=== PATIENT | female | born 1985 | race Caucasian/White ===

== ENCOUNTER 2016-09-10 22:31 | Emergency (ER) | payer OTHER ==
[~2016-09-10] VITALS: Ht 162.6 cm; Wt 97.8 kg
[~2016-09-10 22:31] MED LIST: ALPR0.5T PO; CARB200T PO; CITA40TA12 PO; WLLSR150 PO
[2016-09-10 22:37] VITALS: BP 158/98; PULSE 120; TEMP 36.5; O2SAT 97; Ht 162.6 cm; Wt 97.8 kg
--- NOTE | 2016-09-10 22:59 | EMERGENCY ROOM VISIT NOTE ---
History Report prepared by Tana: Josefa Glover Under the Supervision of: Dr. Lewis Berg M.D. First contact with patient: 22:53 Chief Complaint: BACK PAIN Stated Complaint: REALLY BAD PAIN, SCIATICA AND BIG TOE History of Present Illness The patient is a 31 year old female who presents to the Emergency Room via family with complaints of worsening back pain with onset 1.5 weeks ago. She rates her pain as a 9/10. The patient states that she has a history of sciatica. The patient has been seen at her PCP and has tried various treatments for her sciatica pain. For her pain, the patient has tried taking ibuprofen at home, without relief. The patient's left toe is swollen and painful. She denies falling, trauma, difficulty urinating. Additionally, the patient states that taking prednisone or muscle relaxers do not work. Source of History: patient Onset: 1.5 weeks ago Position: back Symptom Intensity: 9/10 Quality: other (back pain) Timing: worsening Note: The patient's left toe is swollen and painful. She denies difficulty urinating. Review of Systems See HPI for pertinent positives & negatives. A total of 10 systems reviewed and were otherwise negative. Past Medical & Surgical Medical Problems: (1) Bipolar disorder (2) Complete (3) Sciatica Surgical Problems: (1) History of cholecystectomy Family History No significant family history Social History Smoking Status: Current Every Day Smoker Alcohol Use: none Drug Use: none Marital Status: Housing Status: lives with family Occupation Status: disabled Current/Historical Medications Scheduled Alprazolam (Xanax), 0.5 MG PO TID Bupropion HCl (Bupropion HCl Sr), 150 MG PO DAILY Carbamazepine (Tegretol), 100 MG PO BID Citalopram Hydrobromide (Celexa), 40 MG PO DAILY Scheduled PRN Oxycodone Ir (Roxicodone Ir), 1-2 TAB PO Q4H PRN for Pain Allergies Coded Allergies: Penicillins (Verified Allergy, Intermediate, rash, 01/21/16) Physical Exam Vital Signs Date Time Temp Pulse Resp B/P Pulse Ox O2 Delivery O2 Flow Rate FiO2 09/10/16 22:37 36.5 120 18 158/98 97 Room Air Physical Exam GENERAL: Patient is in no acute distress. HEENT: No acute trauma, normocephalic atraumatic, mucous membranes moist, no nasal congestion, no scleral icterus. NECK: No stridor, no adenopathy, no meningismus, trachea is midline. LUNGS: Clear to auscultation bilaterally, no wheeze, no rhonchi, breath sounds equal. HEART: Without murmurs gallops or rubs, regular rate and rhythm. ABDOMEN: Soft, nontender, bowel sounds positive, no hernias, no peritonitis. BACK: Tender to palpate the left lumbar muscles, pain worsens with movement. EXTREMITIES: No cyanosis or edema, full range of motion of all the joints without pain or difficulty. Left toe skin is split open medially--no infection or cellulitis--the area is tender to touch. NEUROLOGIC: Oriented x 3, no acute motor or sensory deficits, no focal weakness. 2/4 patellar and Achilles' reflexes bilaterally. SKIN: No rash, no jaundice, no diaphoresis. Medical Decision & Procedures Medications Administered Medications (Trade) Dose Ordered Sig/Katherine Route Start Time Stop Time Status Last Admin Dose Admin Ketorolac Tromethamine (Toradol Inj) 60 mg NOW STAT IM 09/10/16 23:01 09/10/16 23:04 DC 09/10/16 23:21 60 MG Promethazine HCl (Phenergan Tab) 25 mg NOW ONCE PO 09/10/16 23:15 09/10/16 23:16 DC 09/10/16 23:21 25 MG Oxycodone HCl (Roxicodone Immediate Rel 5MG Home Pack) 1 homepack UD ONCE PO 09/10/16 23:15 09/10/16 23:16 DC 09/10/16 23:22 1 HOMEPACK Morphine Sulfate (MoRPHine SULFATE INJ) 2 mg STK-MED ONCE .ROUTE 09/10/16 23:19 09/10/16 23:20 DC 09/10/16 23:20 2 MG Morphine Sulfate (MoRPHine SULFATE INJ) 4 mg STK-MED ONCE .ROUTE 09/10/16 23:19 09/10/16 23:20 DC 09/10/16 23:21 4 MG ED Course 225: The patient was evaluated in room A3. A complete history and physical exam was performed. 230: Toradol 60 mg IM, Morphine Sulfate 6 mg IM 2315: Oxycodone HCl 1 homepack PO, Phenergan Tab 25 mg PO 2338: Reevaluated the patient. Discussed results and discharge instructions: She verbalized understanding and agreement. The patient is ready for discharge. Medical Decision The patient is a 31 year old female who presents to the ED with complaints of back pain. Differential diagnoses considered include: sciatica, muscle spasm, nerve impingement, disc disease, infection. The patient presents with left back pain and some sciatica pain, this has been an ongoing issue for her. She has seen chiropractors, physical therapy, she has been to pain management. The patient is currently using nonsteroidals at home for pain control. She denies any recent trauma or injury that would've aggravated things, there has been no fever, she does state that she has a split area of skin on her left toe and this has been causing more pain in the already painful left leg. The patient was given IM morphine, IM Toradol and oral Phenergan. I did not feel the need for imaging or laboratory testing. There has been no trauma, she has not been febrile or ill in other ways. This sciatica issue has been ongoing for her. The patient is being discharged with a few oxycodone. She will continue her other meds, I advised massage, heat and gentle stretching. She should see her chiropractor again. She can return if worsening or if she develops a fever. [place] Drug Monitoring Program Search Results: patient reviewed within database, no issues identified Impression Primary Impression: Lower back pain Additional Impression: Sciatica Scribe Attestation The scribe's documentation has been prepared under my direction and personally reviewed by me in its entirety. I confirm that the note above accurately reflects all work, treatment, procedures, and medical decision making performed by me. Departure Information Dispostion Home / Self-Care Prescriptions Oxycodone Ir (Roxicodone Ir) 5 Mg Tab 1-2 TAB PO Q4H Y for Pain, #12 TAB Prov: Lewis Berg M.D. 09/10/16 Referrals Rodrigo Hunt M.D. (PCP) Forms HOME CARE DOCUMENTATION FORM, IMPORTANT VISIT INFORMATION Patient Instructions My [facility] Additional Instructions oxy ir 1-2 tab every 4 hours for pain massage and heat gentle stretching see your chiropractor and jayjay dutta Problem Qualifiers
[2016-09-10] MEDS ORDERED: MoRPHine SULFATE 10 MG/ML CARP/VIAL IM STA (23:01)
[2016-09-10] MEDS ORDERED: KETOROLAC TROMETHAMINE 60 MG/2 ML VIAL IM STA (23:01)
[2016-09-10] MEDS ORDERED: PROMETHAZINE HCL 25 MG TAB PO ONE (23:15)
[2016-09-10] MEDS ORDERED: OXYCODONE IR HOME PACK PO ONE (23:15)
[2016-09-10] MEDS ORDERED: MoRPHine SULFATE 4 MG/ML 1 ML CARP\\VIAL ONE (23:19)
[2016-09-10] MEDS ORDERED: MoRPHine SULFATE 2 MG/ML CARP ONE (23:19)
[2016-09-10] MEDS ORDERED: OXYC1TAB3 PO (23:39)
== END 2016-09-10 23:50 | disposition home or self-care (01) ==
LOC: C.EDB 22:32 → C.EDA 23:50
DX: M54.5 Low back pain (principal); M53.3 Sacrococcygeal disorders, not elsewhere classified; F31.9 Bipolar disorder, unspecified; F17.200 Nicotine dependence, unspecified, uncomplicated; Z90.49 Acquired absence of other specified parts of digestive tract; Z79.899 Other long term (current) drug therapy; Z88.0 Allergy status to penicillin

== ENCOUNTER 2016-10-30 22:22 | Emergency (ER) | payer OTHER ==
[~2016-10-30] VITALS: Ht 162.6 cm; Wt 97.9 kg
[~2016-10-30 22:22] MED LIST changes: +OXYC1TAB3 PO
[2016-10-30 22:31] VITALS: TEMP 36.9; Ht 162.6 cm; Wt 97.9 kg
[2016-10-30] MEDS ORDERED: ALPRAZOLAM 0.5 MG TAB PO STA (22:32)
[2016-10-30 22:51] LABS: MEAN CELL VOLUME 92.4 fL (80-100); MEAN CORPUSCULAR HEMOGLOBIN 31.3 pg (25-34); MEAN CORPUSCULAR HGB CONC 33.8 g/dl (32-36); MEAN PLATELET VOLUME 9.1 fL (7.4-10.4); PLATELET COUNT 371 K/uL (130-400); RED BLOOD COUNT 4.22 M/uL (4.2-5.4); WHITE BLOOD COUNT 14.73 K/uL (4.8-10.8)
--- NOTE | 2016-10-30 22:51 | EMERGENCY ROOM VISIT NOTE ---
History Report prepared by Tana: Remy Salazar Under the Supervision of: Dr. Ventura Ashton M.D. First contact with patient: 22:27 Chief Complaint: ANXIETY Stated Complaint: ANXIETY History of Present Illness The patient is a 31 year old female who presents to the Emergency Room with complaints of an anxiety attack that started approximately 2 hours [employer]. She was brought to the ED via EMS. The patient describes the attack as feeling like a "tingly" pain throughout her chest and back. She also states she feels like she is going to hyperventilate. She admits to a history of anxiety, for which she takes Xanax. She took one pill this morning and another one earlier this evening. She admits to increased fighting with her , which may have exacerbated her symptoms. The patient also complains of shortness of breath. She denies any abdominal pain or personal cardiac history but does admit to a family history of cardiac problems. 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 Please see Additional Medical History Sheet. Past Medical & Surgical Medical Problems: (1) Bipolar disorder (2) Complete (3) Sciatica Surgical Problems: (1) History of cholecystectomy Family History No significant family history Social History Smoking Status: Current Every Day Smoker Alcohol Use: none Drug Use: none Marital Status: Housing Status: lives with family Occupation Status: disabled Current/Historical Medications Scheduled Alprazolam (Xanax), 0.5 MG PO TID Risperidone (Risperdal), 1 MG PO QPM Sertraline (Zoloft), 200 MG PO HS Scheduled PRN Hydrocodone/Acetaminophen 5MG/325MG ([place] 5MG/325MG), 1 TABLET PO Q6 PRN for Severe Pain Ibuprofen (Ibuprofen), 800 MG PO Q8 PRN for Pain Allergies Coded Allergies: Penicillins (Verified Allergy, Intermediate, rash, 01/21/16) Physical Exam Vital Signs Date Time Temp Pulse Resp B/P Pulse Ox O2 Delivery O2 Flow Rate FiO2 10/31/16 00:05 99 18 128/93 95 Room Air 10/30/16 22:42 115 10/30/16 22:31 36.9 108 20 130/110 98 Room Air Physical Exam GENERAL: Patient awake, alert, oriented x 3. Patient follows commands. Patient does not appear toxic. Patient is adequately hydrated and well- nourished. SKIN: No erythema, pallor, cyanosis or rash HEENT: Normal head, pupils equal, reactive to light and accommodation. Oral cavity and posterior pharynx appear normal. LUNGS: Clear to auscultation. No wheezes, no rales, no rhonchi. CHEST: Slight tenderness over left sternal border. HEART: No murmurs. No gallops. No rubs ABDOMEN: Obese. No masses, no rebound, no hepatomegaly or splenomegaly. EXTREMITIES: No signs of trauma. No pedal or pretibial edema. No calf or thigh tenderness. NEUROLOGIC: Cranial nerves II-XII within normal limits. No gross motor sensory function deficits. Medical Decision & Procedures ER Provider Diagnostic Interpretation: This X-Ray was reviewed and interpreted by myself as we do not have a radiologist on staff overnight. CHEST X-RAY Chest X-Ray shows no acute infiltrates or pneumothorax. Laboratory Results 10/30/16 22:40 10/30/16 22:40 Test 10/30/16 22:40 Red Blood Count 4.22 M/uL (4.2-5.4) Mean Corpuscular Volume 92.4 fL (80-100) Mean Corpuscular Hemoglobin 31.3 pg (25-34) Mean Corpuscular Hemoglobin Concent 33.8 g/dl (32-36) RDW Standard Deviation 48.3 fL (36.4-46.3) RDW Coefficient of Variation 14.3 % (11.5-14.5) Mean Platelet Volume 9.1 fL (7.4-10.4) Anion Gap 11.0 mmol/L (3-11) Est Creatinine Clear Calc Drug Dose 128.1 ml/min Estimated GFR () 128.1 Estimated GFR (Non- 110.5 BUN/Creatinine Ratio 15.6 (10-20) Calcium Level 8.6 mg/dl (8.5-10.1) Troponin I < 0.015 ng/ml (0-0.045) Laboratory results as stated above per my review. Medications Administered Medications (Trade) Dose Ordered Sig/Katherine Route Start Time Stop Time Status Last Admin Dose Admin Alprazolam (Xanax Tab) 0.5 mg NOW STAT PO 10/30/16 22:32 10/30/16 22:34 DC 10/30/16 22:41 0.5 MG ECG Indication: chest pain Rate (beats per minute): 106 Rhythm: sinus tachycardia Findings: PAC, no acute ischemic change, other (normal axis) ED Course 2228: Past medical records reviewed. The patient was evaluated in room A12. A complete history and physical examination was performed. 223: Xanax 0.5 mg PO. 0039: I reevaluated the patient. She is still in some discomfort but is feeling better. I discussed her results and discharge instructions and she verbalized complete understanding and agreement. Medical Decision Nurses notes reviewed. Medical history sheet reviewed. Differential diagnosis includes but is not limited to: anxiety, hyperventilation syndrome, cardiac ischemia, aortic dissection, pulmonary embolism, pneumonia, pneumothorax, musculoskeletal, infections, pericarditis, myocarditis, esophageal rupture, gastrointestinal, as well as others were entertained. Multiple labs, EKG and imaging were obtained. Please see above. The patient's white count is slightly elevated although I do not believe this represents a pulmonary infection. Troponin is not elevated. EKG does not reveal an acute change. Patient does have slight chest wall pain. She also significant anxiety. The patient was reassured. I believe that she can safely return home. She does have Xanax to take at home as needed. She is to follow-up with her family physician. Impression Primary Impression: Acute anxiety Additional Impression: Chest wall pain Scribe Attestation The scribe's documentation has been prepared under my direction and personally reviewed by me in its entirety. I confirm that the note above accurately reflects all work, treatment, procedures, and medical decision making performed by me. Departure Information Dispostion Home / Self-Care Referrals Rodrigo Hunt M.D. (PCP) Patient Instructions ED Stress React, My [facility] Additional Instructions Apply warm heat intermittently to your chest over the next 2-3 days. Take Xanax as needed for anxiety. Follow-up with your family physician within the next 7 days. Return here if your symptoms are getting worse. Problem Qualifiers
[2016-10-30 23:08] LABS: BLOOD UREA NITROGEN 11 mg/dl (7-18); BUN/CREATININE RATIO 15.6 (10-20); CALCIUM 8.6 mg/dl (8.5-10.1); CARBON DIOXIDE 27 mmol/L (21-32); CHLORIDE 109 mmol/L (98-107); CREATININE 0.73 mg/dl (0.60-1.20); GLUCOSE 103 mg/dl (70-99); POTASSIUM 3.4 mmol/L (3.5-5.1); SODIUM 147 mmol/L (136-145)
[2016-10-31 00:05] VITALS: BP 128/93; PULSE 99; O2SAT 95
[2016-10-31] MEDS ORDERED: MTR800 PO (00:23)
[2016-10-31] MEDS ORDERED: SERT-234 PO (00:23)
[2016-10-31] MEDS ORDERED: RISP1TAB68 PO (00:23)
[2016-10-31] MEDS ORDERED: HYDR-5688 PO (00:24)
--- NOTE | 2016-10-31 07:27 | DIAGNOSTIC IMAGING REPORT ---
CHEST 2 VIEWS ROUTINE HISTORY: Atypical chest pain COMPARISON: Chest 10/03/2015. FINDINGS: Small linear density at the left midlung zone favor scarring or atelectasis. The lungs are otherwise clear. The heart is normal in size. No pleural effusions. No pneumothorax. IMPRESSION: Left midlung zone scarring or atelectasis. Otherwise, no acute process within the chest. Electronically signed by: Fili Naqvi M.D. 10/31/2016 7:25 AM Dictated Date/Time: 10/31/2016 7:24 AM
== END 2016-10-31 00:58 | disposition home or self-care (01) ==
LOC: EDBD 22:22 → C.EDA 22:24
DX: F41.9 Anxiety disorder, unspecified (principal); R07.89 Other chest pain; R00.0 Tachycardia, unspecified; R31.9 Hematuria, unspecified; F17.200 Nicotine dependence, unspecified, uncomplicated; Z90.49 Acquired absence of other specified parts of digestive tract; Z79.899 Other long term (current) drug therapy; Z88.0 Allergy status to penicillin

== ENCOUNTER 2016-12-12 19:55 | Emergency (ER) | payer OTHER ==
[~2016-12-12] VITALS: Ht 162.6 cm; Wt 97.2 kg
[~2016-12-12 19:55] MED LIST changes: -CARB200T PO; -CITA40TA12 PO; +HYDR-5688 PO; +MTR800 PO; -OXYC1TAB3 PO; +RISP1TAB68 PO; +SERT-234 PO; -WLLSR150 PO
[2016-12-12 19:58] VITALS: Ht 162.6 cm; Wt 97.2 kg
[2016-12-12] MEDS ORDERED: TRAZ50TA35 PO (20:17)
[2016-12-12] MEDS ORDERED: SODIUM CHLORIDE 0.9% 1000ML 1,000 ML IV STA ×2 (20:46)
[2016-12-12 20:54] LABS: BASO % 0.3 %; BASO ABS # 0.05 K/uL (0-0.2); COMPLETE YES; EOS % 0.1 %; IG% 0.3 %; LYMPH % 11.3 %; LYMPH ABS # 2.05 K/uL (1.2-3.4); MEAN CELL VOLUME 90.9 fL (80-100); MEAN CORPUSCULAR HEMOGLOBIN 31.5 pg (25-34); MEAN CORPUSCULAR HGB CONC 34.6 g/dl (32-36); MEAN PLATELET VOLUME 9.2 fL (7.4-10.4); MONO % 3.6 %; NEUT % 84.4 %; PLATELET COUNT 284 K/uL (130-400); RED BLOOD COUNT 4.29 M/uL (4.2-5.4); WHITE BLOOD COUNT 18.16 K/uL (4.8-10.8)
[2016-12-12 21:07] LABS: MANUAL MICROSCOPIC REQUIRED? NO; REVIEW REQ? NO; URINE APPEARANCE CLEAR (CLEAR); URINE BILIRUBIN NEG (NEG); URINE COLOR YELLOW; URINE EPITHELIAL CELL AUTO >30 /lpf (0-5); URINE NITRITE NEG (NEG); URINE SPECIFIC GRAVITY 1.019 (1.000-1.030); UROBILINOGEN NEG (NEG); ZZUR CULT IF INDIC CLEAN CATCH NO
[2016-12-12 21:09] LABS: SULFASALICYLIC ACID POS (NEG)
[2016-12-12 21:11] LABS: ALT/SGPT 33 U/L (12-78); BLOOD UREA NITROGEN 9 mg/dl (7-18); BUN/CREATININE RATIO 9.6 (10-20); CALCIUM 9.1 mg/dl (8.5-10.1); CARBON DIOXIDE 26 mmol/L (21-32); CHLORIDE 99 mmol/L (98-107); CREATININE 0.89 mg/dl (0.60-1.20); GLUCOSE 120 mg/dl (70-99); MAGNESIUM 1.6 mg/dl (1.8-2.4); POTASSIUM 3.1 mmol/L (3.5-5.1); SODIUM 135 mmol/L (136-145)
--- NOTE | 2016-12-12 21:13 | DIAGNOSTIC IMAGING REPORT ---
SINGLE VIEW CHEST CLINICAL HISTORY: Generalized weakness. FINDINGS: An AP, portable, semierect chest radiograph is compared to study dated 10/30/2016 and correlated with chest CT dated . The examination is degraded by portable technique, large body habitus, and patient rotation. The cardiomediastinal silhouette is unremarkable. There are bibasilar airspace opacities and mild elevation of the right hemidiaphragm. No large pleural effusion or pneumothorax is seen. The bony thorax is grossly intact. IMPRESSION: Bibasilar airspace opacities likely represent atelectasis. Clinical correlation will be required. Electronically signed by: Lewis Westfall M.D. 12/12/2016 9:12 PM Dictated Date/Time: 12/12/2016 9:11 PM
[2016-12-12] MEDS ORDERED: KETOROLAC TROMETHAMINE 30 MG/ML VIAL IV STA (21:18)
[2016-12-12] MEDS ORDERED: ACETAMINOPHEN 500 MG TAB PO STA (21:18)
[2016-12-12 21:20] LABS: ALKALINE PHOSPHATASE 113 U/L (45-117); AST/SGOT 15 U/L (15-37)
[2016-12-12 22:09] LABS: LYME DISEASE AB IGG NEG (NEG); LYME DISEASE AB IGM NEG (NEG)
--- NOTE | 2016-12-12 22:30 | DIAGNOSTIC IMAGING REPORT ---
CT SCAN OF THE BRAIN WITHOUT IV CONTRAST CLINICAL HISTORY: Headache. COMPARISON STUDY: No priors. TECHNIQUE: Unenhanced axial CT scan of the brain is performed from the vertex to the skull base. Automated dose control exposure was utilized. CT DOSE: 537.48 mGy.cm FINDINGS: Brain parenchyma: The brain parenchyma is normal in appearance. There is no hemorrhage, mass effect, or evidence of acute territorial ischemia by CT criteria. Oscar-white matter is preserved. No extra-axial fluid collection is seen. Ventricles, sulci, cisterns: Normal in configuration. Intracranial vasculature: The visualized intracranial vasculature at the skull base is normal in appearance. Calvarium: Unremarkable. Sinuses and mastoids: Trace fluid is seen in the sphenoid sinuses. The remaining visualized paranasal sinuses are clear. The mastoid air cells are well pneumatized. Orbits: The bony orbits are grossly intact. IMPRESSION: No acute intracranial abnormality. Electronically signed by: Lewis Westfall M.D. 12/12/2016 10:29 PM Dictated Date/Time: 12/12/2016 10:27 PM
[2016-12-12 22:54] VITALS: O2SAT 97
[2016-12-12] MEDS ORDERED: MoRPHine SULFATE 4 MG/ML 1 ML CARP\\VIAL IV STA (23:46)
[2016-12-12] MEDS ORDERED: ONDANSETRON INJ 2 MG/ML 2 ML VIAL IV STA (23:46)
[2016-12-13 02:01] LABS: CSF TOTAL PROTEIN 26.7 mg/dl (15.0-45.0)
[2016-12-13 02:16] LABS: CSF CHEMISTRY TUBE # 2
[2016-12-13 02:19] LABS: CSF APPEARANCE CLEAR; CSF COLOR COLORLESS; CSF XANTHOCHROMIC NO XANTHOCHROMIA
[2016-12-13 02:29] VITALS: PULSE 98; O2SAT 97
[2016-12-13] MEDS ORDERED: DOXYCYCLINE HYCLATE 100 MG CAP PO ONE (02:30)
[2016-12-13] MEDS ORDERED: POTASSIUM CHLORIDE 10 MEQ TABCR PO STA (02:30)
[2016-12-13] MEDS ORDERED: DXY100 PO (02:32)
[2016-12-13 02:47] VITALS: BP 124/75; TEMP 36.9
--- NOTE | 2016-12-13 03:58 | EMERGENCY ROOM VISIT NOTE ---
History Report prepared by Tana: Aby Junior Under the Supervision of: Dr. Brooks Mccall M.D. First contact with patient: 20:46 Chief Complaint: ILLNESS Stated Complaint: POUNDING HEAD,BAD ACHING EVERYWHERE,WEAK History of Present Illness The patient is a 31 year old female who presents to the Emergency Room with complaints of an episode of an illness starting eight hours ago. The patient states that she has a headache, fever, cough, sorethroat, some nasal congestion , and weakness. The patient notes that she took Ibuprofen eight hours ago with no relief. She states that her headache feels like a throbbing sensation. The patient denies any tick or bug bites. Pt denies LOC, chills, diaphoresis, visual changes, neck pain, chest pain, breathing difficulties, nausea, vomiting , abdominal pain, new back pain, melena, hematochezia, urinary symptoms, numbness, lymphadenopathy, rash, or other complaints. Source of History: patient Onset: eight hours ago Position: other (global) Quality: other (global) Timing: other (episode) Associated Symptoms: + fevers, + headache, + sorethroat, + cough, + weakness Note: The patient complains of nasal congestion. The patient denies any tick or bug bites. Review of Systems See HPI for pertinent positives and negatives. A total of ten systems were reviewed and were otherwise negative. Past Medical & Surgical Medical Problems: (1) Bipolar disorder (2) Complete (3) Sciatica Surgical Problems: (1) History of cholecystectomy Family History No significant family history Social History Smoking Status: Current Every Day Smoker Alcohol Use: none Drug Use: none Marital Status: Housing Status: lives with family Occupation Status: disabled Current/Historical Medications Scheduled Alprazolam (Xanax), 0.5 MG PO TID Doxycycline Hyclate (Doxycycline Hyclate), 100 MG PO BID Trazodone Hcl (Trazodone), 50 MG PO HS Scheduled PRN Hydrocodone/Acetaminophen 5MG/325MG ([place] 5MG/325MG), 1 TABLET PO Q6 PRN for Severe Pain Ibuprofen (Ibuprofen), 800 MG PO Q8 PRN for Pain Allergies Coded Allergies: Penicillins (Verified Allergy, Intermediate, rash, 12/12/16) Physical Exam Vital Signs Date Time Temp Pulse Resp B/P (MAP) Pulse Ox O2 Delivery O2 Flow Rate FiO2 12/13/16 02:47 36.9 18 124/75 12/13/16 02:29 98 97 Room Air 12/13/16 01:40 98 20 119/83 94 Room Air 12/12/16 23:02 121 12/12/16 22:54 97 Room Air 12/12/16 22:54 126 16 137/89 97 Room Air 12/12/16 19:58 38.4 138 22 146/94 96 Room Air Physical Exam GENERAL: Awake, alert, mildly ill appearing, no distress HEAD: Normocephalic, atraumatic. No edema. EYES: Normal conjunctiva. Sclera non-icteric. EARS: Right TM normal. Left TM normal. NOSE: Mild congestion. OROPHARYNX: Lips, tongue, and mucosa unremarkable. No erythema or exudate. NECK: Supple. No nuchal rigidity. FROM. No adenopathy. Negative jolt accentuation test. RESPIRATORY: CTA bilaterally. No wheezes rales or rhonchi. CARDIAC: Borderline tachycardic rate, normal rhythm. ABDOMEN: Soft, non distended. No tenderness to palpation. NEURO: Normal sensorium. SKIN: No rash or jaundice noted Medical Decision & Procedures ER Provider Diagnostic Interpretation: Radiology results as stated below per my review and radiologist interpretation: SINGLE VIEW CHEST CLINICAL HISTORY: Generalized weakness. FINDINGS: An AP, portable, semierect chest radiograph is compared to study dated 10/30/2016 and correlated with chest CT dated . The examination is degraded by portable technique, large body habitus, and patient rotation. The cardiomediastinal silhouette is unremarkable. There are bibasilar airspace opacities and mild elevation of the right hemidiaphragm. No large pleural effusion or pneumothorax is seen. The bony thorax is grossly intact. IMPRESSION: Bibasilar airspace opacities likely represent atelectasis. Clinical correlation will be required. Electronically signed by: Lewis Westfall M.D. 12/12/2016 9:12 PM Dictated Date/Time: 12/12/2016 9:[address] SCAN OF THE BRAIN WITHOUT IV CONTRAST CLINICAL HISTORY: Headache. COMPARISON STUDY: No priors. TECHNIQUE: Unenhanced axial CT scan of the brain is performed from the vertex to the skull base. Automated dose control exposure was utilized. CT DOSE: 537.48 mGy.cm FINDINGS: Brain parenchyma: The brain parenchyma is normal in appearance. There is no hemorrhage, mass effect, or evidence of acute territorial ischemia by CT criteria. Oscar-white matter is preserved. No extra-axial fluid collection is seen. Ventricles, sulci, cisterns: Normal in configuration. Intracranial vasculature: The visualized intracranial vasculature at the skull base is normal in appearance. Calvarium: Unremarkable. Sinuses and mastoids: Trace fluid is seen in the sphenoid sinuses. The remaining visualized paranasal sinuses are clear. The mastoid air cells are well pneumatized. Orbits: The bony orbits are grossly intact. IMPRESSION: No acute intracranial abnormality. Electronically signed by: Lewis Westfall M.D. 12/12/2016 10:29 PM Dictated Date/Time: 12/12/2016 10:27 PM Laboratory Results 12/12/16 20:40 Red Blood Count 4.29, Mean Corpuscular Volume 90.9, Mean Corpuscular Hemoglobin 31.5, Mean Corpuscular Hemoglobin Concent 34.6, Mean Platelet Volume 9.2, Neutrophils (%) (Auto) 84.4, Lymphocytes (%) (Auto) 11.3, Monocytes (%) (Auto) 3.6, Eosinophils (%) (Auto) 0.1, Basophils (%) (Auto) 0.3, Neutrophils # (Auto) 15.34, Lymphocytes # (Auto) 2.05, Monocytes # (Auto) 0.66, Eosinophils # (Auto) 0.01, Basophils # (Auto) 0.05 12/12/16 20:40 Test 12/12/16 00:00 12/12/16 20:40 12/12/16 21:14 12/13/16 01:00 Urine Color YELLOW Urine Appearance CLEAR (CLEAR) Urine pH 8.0 (4.5-7.5) Urine Specific [place] 1.019 (1.000-1.030) Urine Protein TRACE (NEG) Urine Glucose (UA) NEG (NEG) Urine Ketones NEG (NEG) Urine Occult Blood NEG (NEG) Urine Nitrite NEG (NEG) Urine Bilirubin NEG (NEG) Urine Urobilinogen NEG (NEG) Urine Leukocyte Esterase NEG (NEG) Urine WBC (Auto) 1-5 /hpf (0-5) Urine RBC (Auto) 0-4 /hpf (0-4) Urine Hyaline Casts (Auto) 0 /lpf (0-5) Urine Epithelial Cells (Auto) >30 /lpf (0-5) Urine Bacteria (Auto) NEG (NEG) Urine Test NEG (NEG) White Blood Count 18.16 K/uL (4.8-10.8) Red Blood Count 4.29 M/uL (4.2-5.4) Hemoglobin 13.5 g/dL (12.0-16.0) Hematocrit 39.0 % (37-47) Mean Corpuscular Volume 90.9 fL (80-100) Mean Corpuscular Hemoglobin 31.5 pg (25-34) Mean Corpuscular Hemoglobin Concent 34.6 g/dl (32-36) Platelet Count 284 K/uL (130-400) Mean Platelet Volume 9.2 fL (7.4-10.4) Neutrophils (%) (Auto) 84.4 % Lymphocytes (%) (Auto) 11.3 % Monocytes (%) (Auto) 3.6 % Eosinophils (%) (Auto) 0.1 % Basophils (%) (Auto) 0.3 % Neutrophils # (Auto) 15.34 K/uL (1.4-6.5) Lymphocytes # (Auto) 2.05 K/uL (1.2-3.4) Monocytes # (Auto) 0.66 K/uL (0.11-0.59) Eosinophils # (Auto) 0.01 K/uL (0-0.5) Basophils # (Auto) 0.05 K/uL (0-0.2) RDW Standard Deviation 46.3 fL (36.4-46.3) RDW Coefficient of Variation 14.1 % (11.5-14.5) Immature Granulocyte % (Auto) 0.3 % Immature Granulocyte # (Auto) 0.05 K/uL (0.00-0.02) Anion Gap 10.0 mmol/L (3-11) Est Creatinine Clear Calc Drug Dose 104.6 ml/min Estimated GFR () 100.8 Estimated GFR (Non- 87.0 BUN/Creatinine Ratio 9.6 (10-20) Calcium Level 9.1 mg/dl (8.5-10.1) Magnesium Level 1.6 mg/dl (1.8-2.4) Total Bilirubin 0.7 mg/dl (0.2-1) Direct Bilirubin 0.1 mg/dl (0-0.2) Aspartate Amino Transf (AST/SGOT) 15 U/L (15-37) Alanine Aminotransferase (ALT/SGPT) 33 U/L (12-78) Alkaline Phosphatase 113 U/L (45-117) Total Creatine Kinase 56 U/L (26-192) Creatine Kinase MB < 0.5 ng/ml (0.5-3.6) Creatine Kinase MB Ratio (0-3.0) Troponin I < 0.015 ng/ml (0-0.045) Total Protein 8.3 gm/dl (6.4-8.2) Albumin 3.9 gm/dl (3.4-5.0) Lipase 127 U/L (73-393) Thyroid Stimulating Hormone (TSH) 0.380 uIu/ml (0.300-4.500) Lyme Disease IgG Antibody NEG (NEG) Lyme Disease IgM Antibody NEG (NEG) Bedside Lactic Acid Venous 1.56 mmol/L (0.90-1.70) CSF Color COLORLESS CSF Appearance CLEAR CSF WBC 0 /uL (0-5) CSF RBC 540 /uL (0) CSF Xanthrochromic NO XANTHOCHROMIA CSF Cell Count Tube # 1 CSF Chemistry Tube # 2 CSF Glucose 84 mg/dl (40-70) CSF Total Protein 26.7 mg/dl (15.0-45.0) Laboratory results reviewed by me Medications Administered Medications (Trade) Dose Ordered Sig/Katherine Route Start Time Stop Time Status Last Admin Dose Admin Sodium Chloride 1,000 ml @ 999 mls/hr Q1H1M STAT IV 12/12/16 20:46 12/12/16 21:46 DC 12/12/16 21:07 999 MLS/HR Sodium Chloride 1,000 ml @ 125 mls/hr Q8H STAT IV 12/12/16 20:46 12/13/16 04:45 12/12/16 20:46 125 MLS/HR Acetaminophen (Tylenol Tab) 1,000 mg NOW STAT PO 12/12/16 21:18 12/12/16 21:20 DC 12/12/16 21:36 1,000 MG Ketorolac Tromethamine (Toradol Inj) 30 mg NOW STAT IV 12/12/16 21:18 12/12/16 21:20 DC 12/12/16 21:36 30 MG Morphine Sulfate (MoRPHine SULFATE INJ) 4 mg NOW STAT IV 12/12/16 23:46 12/12/16 23:47 DC 12/13/16 00:15 4 MG Ondansetron HCl (Zofran Inj) 4 mg NOW STAT IV 12/12/16 23:46 12/12/16 23:47 DC 12/13/16 00:15 4 MG Doxycycline Hyclate (Vibramycin Cap) 100 mg ONE ONCE PO 12/13/16 02:30 12/13/16 02:31 DC 12/13/16 02:39 100 MG Potassium Chloride (Klor-Con M10) 20 meq NOW STAT PO 12/13/16 02:30 12/13/16 02:32 DC 12/13/16 02:39 20 MEQ Procedure Lumbar Puncture Indication: Fever and headache. Verbal consent was obtained after the risks and benefits were explained, including but not limited to headache, bleeding/clotting, scarring, infection, pain, and bone/joint/nerve damage. At this time, the risks of the procedure are less than the risks of NOT performing the procedure. A time out was taken and the correct patient and site identified. The patient was placed in the left lateral decubitus position and the back was prepped with betadine and draped in the standard fashion. The L3 intervertebral space was identified, anesthetized locally with 1% lidocaine without epinephrine, and the spinal needle was inserted through the skin with the bevel parallel to the dural fibers. The needle was carefully advanced multiple times however spinal fluid cannot be obtained. The patient will need fluoroscopic guidance. A bandaid was placed and the patient was placed in the supine position. The patient tolerated the procedure well and there were no complications. ECG Indication: weakness Rate (beats per minute): 128 Rhythm: sinus tachycardia Findings: no acute ischemic change, no ectopy Comparison ECG Date: 10/30/2016 Change: no significant change ED Course 2045: Ordered NSS 1000 ml @ 999 mls/hr IV, NSS 1000 ml @ 999 mls/hr IV. 2112: The patient was evaluated in room C2B. A complete history and physical exam was performed. 2117: Ordered Toradol Inj 30 mg IV, Tylenol Tab 1000 mg PO. 2237: I reevaluated the patient and she is feeling okay. Her fever has resolved. The patient is going to have a lumbar puncture done. 2346: Ordered Zofran Inj 4 mg IV, Morphine Sulfate 4 mg IV. 2352: Attempted to complete lumbar puncture, but difficult due to patient's body habitus. Notified radiology to perform lumbar puncture. 0225: I reevaluated the patient. Discussed results and discharge instructions: She verbalized understanding and agreement. The patient is ready for discharge. 0230: Ordered Potassium Chloride 20 meq PO, Vibramycin Cap 100 mg PO. Medical Decision Medication Reconciliation: I attest that I have personally reviewed the patient' s current medication list Blood pressure screening: Patient was found to have normal blood pressure on screening and does not require follow-up. Triage Nursing notes reviewed. The patient's presentation and history were concerning for fever, headache and flu symptoms. Etiologies such as viral syndrome, otitis, pharyngitis, pneumonia, urinary tract infection, sepsis, bacteremia, meningitis, as well as others were entertained. Patient was evaluated. She was doing relatively well under the circumstances. She was hydrated. She was given Tylenol and Toradol. Her CBC revealed a moderate leukocytosis. Chemistry panel was unremarkable. Urinalysis was unremarkable. The patient had minimal congestion on chest x-ray with no evidence of significant lobar pneumonia. The patient had an unremarkable head CT. No evidence of sinusitis. On reassessment the patient was doing relatively well but I discussed the need for lumbar puncture. The patient consented. She underwent lumbar puncture but this was not successful at the bedside. Due to the patient's body habitus she will need lumbar puncture under fluoroscopy. The patient was given morphine and Zofran for symptom control. I did consult with Dr. Westfall radiology. He agreed to see the patient for the procedure. This was done successfully. Her CSF had some red blood cells in it however it was difficult procedure per radiology. The patient had no evidence of meningitis or encephalitis. The patient was reassessed. She was doing relatively well. Her fever had resolved. She was very tired. Given her leukocytosis, fever and symptoms with the minor findings on chest x-ray the patient was treated with doxycycline. This may be an early pneumonia. I gave my usual and customary discussion regarding this issue. The patient will follow -up closely as an outpatient. She was given oral potassium as her potassium was mildly low here. By the evaluation outlined above other emergent etiologies such as those listed in the differential, as well as others, were deemed relatively unlikely. The patient was educated about the findings as listed above. All questions were answered and the patient was pleased with the treatment. Return instructions were outlined and the patient was discharged in stable condition. The patient was referred to her PCP this week for follow-up for a recheck of the current condition. Impression Primary Impression: Febrile illness Additional Impressions: Hypokalemia Headache Pneumonia Scribe Attestation The scribe's documentation has been prepared under my direction and personally reviewed by me in its entirety. I confirm that the note above accurately reflects all work, treatment, procedures, and medical decision making performed by me. Departure Information Dispostion Home / Self-Care Prescriptions Doxycycline Hyclate (Doxycycline Hyclate) 100 Mg Cap 100 MG PO BID for 7 Days, #14 CAP Prov: Brooks Mccall MD 12/13/16 Referrals Rodrigo Hunt M.D. (PCP) Forms HOME CARE DOCUMENTATION FORM, IMPORTANT VISIT INFORMATION, WORK / SCHOOL INSTRUCTIONS Patient Instructions My [facility] Additional Instructions Doxycycline 100mg: Take one pill twice daily for 7 days for your infection. Take with food, but avoid dairy. Avoid prolonged sun exposure since this medication makes you temporarily more susceptible to sunburns. All antibiotics can cause diarrhea. If this occurs and you feel worse or it does not resolve in 1-2 days follow up with your doctor or return to the Emergency Department as this could be signs of serious underlying problems. Any medication can cause an allergic reaction, stop the pills immediately and return to the ER for rash, hives, breathing difficulties, or swelling. Acetaminophen(Tylenol) may be used for fever or pain. Use 1000mg every six hours as needed. Avoid using more than 4000mg in a 24 hour period. AND/OR Ibuprofen(Motrin, Advil) may be used for fever or pain. Use 600mg every six hours as needed. Take with food. Avoid using more than 2400mg in a 24 hour period. Do not use 2400mg per day for more than three consecutive days without physician direction. Prolonged inappropriate use can lead to stomach upset or ulcers. Controlling your fever with Tylenol and Ibuprofen as above will make you feel better. Rest and drink plenty of fluids. Avoid strenuous activity until your symptoms resolve and your breathing returns to normal. Return to the ER for chest pain, difficulty breathing, persistent fevers, vomiting, worsening of your condition, or as needed. Follow up with your primary physician in 2-3 days for a recheck of the current condition. Problem Qualifiers
--- NOTE | 2016-12-13 09:09 | DIAGNOSTIC IMAGING REPORT ---
FLUOROSCOPIC GUIDED LUMBAR PUNCTURE CLINICAL HISTORY: Headache and fever. PROCEDURE: The risks, benefits, and alternatives to the procedure is discussed with the patient who voiced understanding. Written informed consent was obtained. The patient was placed prone on the fluoroscopy table. The lower back was prepped and draped in the usual sterile fashion. 1% lidocaine was used for local anesthesia. A 22-gauge spinal needle was inserted into the L3-L4 interlaminar space, and approximately 8 cc of cerebrospinal fluid was removed and sent for laboratory analysis. The spinal fluid was initially blood-tinged and rapidly cleared. The patient tolerated the procedure well. There were no immediate complications. The patient was then transported to the medical treatment unit for further observation. Fluoroscopy time: 2 minutes. IMPRESSION: Fluoroscopic guided lumbar puncture with removal of approximately 8 cc of cerebrospinal fluid. There were no immediate complications. Electronically signed by: Lewis Westfall M.D. 12/13/2016 9:08 AM Dictated Date/Time: 12/13/2016 9:06 AM
== END 2016-12-13 02:43 | disposition home or self-care (01) ==
LOC: C.EDB 19:57
DX: R50.9 Fever, unspecified (principal); E87.6 Hypokalemia; R51 Headache; J18.9 Pneumonia, unspecified organism; F31.9 Bipolar disorder, unspecified; M54.30 Sciatica, unspecified side; F17.210 Nicotine dependence, cigarettes, uncomplicated; Z79.899 Other long term (current) drug therapy

== ENCOUNTER 2018-11-22 05:59 | Observation (INO) ==
--- NOTE | 2018-11-10 12:35 | PAT Medication Instructions ---
Medication Instructions Date of Service November 10, 2018 Home Medications Medication Instructions Recorded tramadol 50 mg PO Q6 PRN #14 tab 11/10/18 doxepin 10 mg PO BID doxepin 150 mg PO HS fluoxetine 60 mg PO QAM omeprazole 20 mg PO QAM tramadol 50 mg PO Q6 PRN Take morning of surgery With a small sip of water, OTHERWISE NOTHING TO EAT OR DRINK AFTER MIDNIGHT: doxepin 10 mg PO BID fluoxetine 60 mg PO QAM omeprazole 20 mg PO QAM tramadol 50 mg PO Q6 PRN (okay to take up to 4 hours prior to surgery if needed) Take evening before surgery doxepin 10 mg PO BID doxepin 150 mg PO HS tramadol 50 mg PO Q6 PRN (if needed) Other Notes If you have any questions please call us at [phone] or [phone] or [phone] or [phone]
--- NOTE | 2018-11-15 12:17 | Anesthesiology Consultation ---
Date of Service November 15, 2018 Assessment & Plan (1) Encounter for pre-operative examination: - Check test AM DOS. - Check BSG AM DOS (Elevated on preop labs. No known hx diabetes. Surgeon made aware.) - Possible difficult intubation due to anatomy. Chart Review Chart Review: Acceptable Risk for Surgery and Patient seen in Pre Admission Testing Teaching & Discussion Pre-Anesthesia Teaching/Discussion Notes: Instructed NPO after midnight before surgery,except medications with 15 cc of water. Medication instructions provided according to the PAT guidelines. History Surgery Operation Date: 11/22/18 11:50 Proposed Procedures p Bilateral Reduction Mammoplasty - Josefa An MD Height/Weight Height: 5 ft 4 in Weight: 99.5 kg Allergies Allergy/AdvReac Type Severity Reaction Status Date / Time Penicillins Allergy Unknown rash Verified 11/09/18 23:51 Medications Home Medications Medication Instructions Recorded Confirmed Last Taken doxepin 10 mg PO BID 11/09/18 11/09/18 11/09/18 doxepin 150 mg PO HS 11/09/18 11/09/18 11/08/18 fluoxetine 60 mg PO QAM 11/09/18 11/09/18 11/09/18 omeprazole 20 mg PO QAM 11/09/18 11/09/18 11/09/18 tramadol 50 mg PO Q6 PRN #14 tab 11/10/18 Unknown Past Medical History Medical History Acid reflux CONTROLLED Anxiety Bipolar disorder Major depression Obesity Sciatica Scoliosis Exercise / Class Metabolic Activity II 4-5 Yardwork/Stairs/Walk up hill Past Family History Family History Grandmother Family history of breast cancer Past Surgical History Surgical History History of 3 sections History of appendectomy Lap appe: 01/22/16: Grade I view, Gonzá[place] #2, ETT 7 at [facility] History of cholecystectomy History of open reduction and internal fixation (ORIF) procedure LEFT ANKLE History of tooth extraction Past Anesthesia History No Hx of Anesthesia Complications and No Family Hx of Anesthesia Complications History of PONV No Hx of PONV and No Hx of Motion Sickness Social History Smoking Status: Former smoker tobacco type: cigarettes Do You Dip or Chew Tobacco: No Smoking End Date: QUIT 7 WEEKS AGO; HX 1/2 PPD X 10+ YEARS Hx Alcohol Use: No Hx Substance Use: No substance use type: does not use Review of Systems Reflux controlled. Patient denies chest pain, shortness of breath, dyspnea on exertion, cough, wheezing, palpitations. Physical Exam Vital Signs VITALS BP 120/85 P 101 TEMP 97.9 SP02 97%RA RESP 20 PHYSICAL Full neck and c-spine range of motion. Full TMJ range of motion. TMD 3 finger breaths Mallampati Score 2 (small oral opening) Dentition: upper full denturse; 6 remaining teeth on lower Lungs: clear throughout to auscultation Cardiac: regular rate and rhythm, no murmurs noted Spine: cevical fat pad Carotid arteries: negative bruit Extremities: no edema Testing Laboratory Results 11/15/18 12:15 11/15/18 12:15 11/15/18 12:15 PT 10.2 INR 1.0 APTT 29.4
[2018-11-15 12:50] LABS: Basophils # (auto) 0.03 K/uL (0-0.2); Basophils % (auto) 0.3 %; Eosinophils # (auto) 0.11 K/uL (0-0.5); Hematocrit (blood only) 40.6 % (37-47); Hemoglobin 13.7 g/dL (12.0-16.0); Immature Granulocytes # (auto) 0.02 K/uL (0.00-0.02); Immature Granulocytes % (auto) 0.2 %; Lymphocytes # (auto) 3.93 K/uL (1.2-3.4); Lymphocytes % (auto) 36.4 %; Mean Corpuscular Hgb Conc 33.7 g/dL (32-36); Mean Corpuscular Volume 92.1 fL (80-100); Mean Platelet Volume 9.6 fL (7.4-10.4); Monocytes % (auto) 4.6 %; Neutrophils % (auto) 57.5 %; Platelet Count 380 K/uL (130-400); RDW Coefficient of Variation 15.2 % (11.5-14.5); RDW Standard Deviation 51.4 fL (36.4-46.3); Red Blood Count 4.41 M/uL (4.2-5.4); White Blood Count 10.79 K/uL (4.8-10.8)
[2018-11-15 12:58] LABS: BUN Creatinine Ratio 9.1 (10-20); Calcium 8.3 mg/dl (8.5-10.1); Creatinine Clr Calc Pharmacy 92.6 ml/min; Est GFR (African American) 86.3; Est GFR (Non-African American) 74.5
[2018-11-15 13:07] LABS: Partial Thromboplastin Ratio 1.1; Partial Thromboplastin Time 29.4 Seconds (21.0-31.0); Prothrombin Time 10.2 Seconds (9.0-12.0)
[2018-11-22] MEDS ORDERED: LR 15ML/HR IV SCH (06:00)
[2018-11-22] MEDS ORDERED: CLINDAMYCIN 600 MG/54 ML BAG IV SCH (06:00)
--- NOTE | 2018-11-22 06:50 | History & Physical Bridge Note ---
Date of Service November 22, 2018 History & Physical Bridge Note I have examined the patient, reviewed the History & Physical and in the interval since the performance of the History & Physical I have noted the following changes of clinical significance: no changes noted Started Prozac since last office visit. Advised this will increase risk of bleeding/bruising slightly but ok to proceed.
[2018-11-22 06:57] LABS: Pregnancy Test, Serum Negative (Negative)
[2018-11-22] MEDS ORDERED: BUPIVACAINE 0.25% 30 ML VIAL ONE (06:57)
[2018-11-22] MEDS ORDERED: LIDOCAINE/EPINEPHRINE 1% 20 ML VIAL ONE (06:57)
[2018-11-22] MEDS ORDERED: fentaNYL citrate 100 MCG/2 ML VIAL ONE ×4 (07:02→12:45)
[2018-11-22] MEDS ORDERED: ePHEDrine sulfate 50 MG/ML AMP IV PRN ×2 (07:02→07:07)
[2018-11-22] MEDS ORDERED: MIDAZOLAM HCL 1 MG/ML 2ML VIAL ONE (07:02)
[2018-11-22] MEDS ORDERED: ONDANSETRON INJ 2 MG/ML 2 ML VIAL IV PRN ×2 (07:02→14:39)
[2018-11-22] MEDS ORDERED: ATROPINE SULFATE 0.1 MG/ML 10ML SYR IV PRN ×2 (07:02→07:07)
[2018-11-22] MEDS ORDERED: SCOPOLAMINE 1.5 MG TDSY TD ONE (07:07)
[2018-11-22] MEDS ORDERED: ALBUTEROL HFA INHALER 8.5 GM ONE (07:44)
[2018-11-22] MEDS ORDERED: ONDANSETRON INJ 2 MG/ML 2 ML VIAL ONE (08:06)
[2018-11-22] MEDS ORDERED: LIDOCAINE HCL 2% 2 ML VIAL/AMP(20MG/ML) INFIL ONE (08:06)
[2018-11-22] MEDS ORDERED: ROCURONIUM BROMIDE 10 MG/ML 5 ML VIAL ONE (08:06)
[2018-11-22] MEDS ORDERED: PROPOFOL IV EMULSION 10 MG/ML 20 ML VIAL IV ONE (08:06)
[2018-11-22] MEDS ORDERED: ePHEDrine sulfate 50 MG/ML SYR ONE (08:06)
[2018-11-22] MEDS ORDERED: NEOSTIGMINE METHYLSULFATE 5 MG/5 ML SYR ONE (08:06)
[2018-11-22] MEDS ORDERED: LARYING-O-JET KIT (LTA) ONE (08:06)
[2018-11-22] MEDS ORDERED: PHENYLEPHRINE 100MCG/ML 5ML SYR ONE (08:06)
[2018-11-22] MEDS ORDERED: GLYCOPYRROLATE 0.2 MG/ML VIAL ONE (08:06)
[2018-11-22] MEDS ORDERED: ACETAMINOPHEN 1000 MG/100 ML IV IV ONE (08:08)
--- NOTE | 2018-11-22 11:58 | Post Operative Brief Note ---
Immediate Post Op Note v1 Date of Surgery November 22, 2018 Pre & Post Diagnosis Operation Date: 11/22/18 07:30 Pre-Op Diagnosis: SYMPTOMATIC BILATERAL MACROMASTIA Post-Op Diagnosis: SYMPTOMATIC BILATERAL MACROMASTIA Procedure Operation Date: 11/22/18 07:30 Actual Procedures p Bilateral Reduction Mammoplasty(Bilateral) - Josefa An MD Surgeon Josefa An MD Crab Backer Rachel Mayorga PA-C Estimated Blood Loss 50 Findings Consistent with Post-Op Diagnosis Drains [place] Drain (bilateral, 15fr x2)
--- NOTE | 2018-11-22 12:00 | Operative Report ---
Post Operative Report Pre & Post Diagnosis Operation Date: 11/22/18 07:30 Pre-Op Diagnosis: SYMPTOMATIC BILATERAL MACROMASTIA Post-Op Diagnosis: SYMPTOMATIC BILATERAL MACROMASTIA Procedure Operation Date: 11/22/18 07:30 Actual Procedures p Bilateral Reduction Mammoplasty(Bilateral) - Josefa An MD Surgeon Josefa An MD Proteomics Scientist Rachel Mayorga PA-C Estimated Blood Loss 50 Findings Consistent with Post-Op Diagnosis Specimens left breast 1188 grams, right breast 1222 grams to pathology Drains JPx2 Anesthesia Type General Complications none Indications back, neck and shoulder pain due to macromastia Description of Procedure The risks, benefits, and alternatives of the procedure were explained to the patient who agreed and signed consent. She was identified and marked in the preoperative holding area. She was brought to the operating room where she was positioned supine and placed under general anesthesia without incident. Surgical site was prepped and draped sterilely. A time-out procedure was performed. I began with the left side. Markings were reassessed and an 8 cm pedicle was marked. 1% lidocaine with epinephrine was used to anesthetize the planned incisions. A 42 mm cookie cutter was used to circumscribe the nipple-areolar complex. The previously marked 8 cm pedicle was incised using a 15 blade scalpel and deepithelized. I began with the medial dissection of the pedicle using electrocautery. Cautery was used to incise through dermis and breast parenchyma down to the chest wall, taking care not to undermine the pedicle during dissection. A similar procedure was undertaken on the lateral aspect of the pedicle again taking care not to undermine. Lastly, the pedicle was dissected out superiorly using electrocautery and this was carried down to the chest wall as well. I then began with excision of the medial breast tissue followed by lateral aspect of the breast tissue and surrounding keyhole incision. A 15 blade scalpel was used to make the inframammary fold incision and electrocautery was used to deepen the incision through dermis and breast parenchyma. Dissection was then carried superiorly to the level of the superior incision. Superior incision was then incised using a 15 blade scalpel and again dissected using electrocautery. This was undertaken laterally and then around the keyhole portion of the incision. Care was taken to leave some fat on the lateral pectoralis fascia in order to protect the T4 intercostal nerve. Hemostasis was achieved with electrocautery. The specimen was passed off in its entirety for weighing. Additional resection was undertaken from the superior flap in order to facilitate closure of the breast and to provide the best shape. The total resection weight of the left breast was 1188 grams. The wound was irrigated with saline and hemostasis was achieved with electrocautery. 0.25% Marcaine plain was used to anesthetize the incisions as well as the pectoralis fascia. A 15 [place]une[place] Alcides drain was brought out through a separate stab incision. The nipple-areolar complex was brought into the keyhole using 2-0 Vicryl deep dermal suture. The wound was closed first in a lateral to mid breast direction and then medial to mid breast direction using 2-0 Vicryl deep dermal sutures. Vertical limb was also approximated using 2-0 Vicryl deep dermals and the nipple-areolar complex was inset using 2-0 Vicryl deep dermal sutures. Next, the superficial dermal layer was closed using 2-0 PDO running Quill suture along the inframammary fold and 3-0 PDS interrupted dermal sutures along the vertical limb and nipple- areolar complex. Lastly 3-0 Monocryl running subcuticular suture was placed. A similar procedure was undertaken on the right side with maximal excision weight of 1222 grams. Breasts were symmetric and nipple-areolar complexes were viable bilaterally following wound closure. Dermabond Prineo was applied along the inframammary fold and vertical limb and Dermabond was placed around the nipple-areolar complex. Dry dressings and a surgical bra were placed. The patient was awakened and transferred to recovery room in satisfactory condition. Rachel Mayorga PA-C was present and scrubbed throughout the procedure and was instrumental in providing retraction during dissection of the pedicle and assisting in wound closure. I attest to the content of the Intraoperative Record and any orders documented therein. Any exceptions are noted below.
[2018-11-22] MEDS: fentaNYL citrate 100 MCG/2 ML VIAL IV PRN ×3 (12:54→13:09)
[2018-11-22] MEDS: HYDROmorphone INJ 1 MG/ML SYRINGE IV PRN ×4 (13:14→13:29)
[2018-11-22] MEDS ORDERED: METOPROLOL TARTRATE 1 MG/ML VIAL IV STA (13:44)
[2018-11-22] MEDS ORDERED: METOPROLOL TARTRATE 1 MG/ML VIAL IV ONE (13:47)
[2018-11-22] MEDS ORDERED: MoRPHine SULFATE 4 MG/ML 1 ML CARP\\VIAL IV PRN (14:39)
[2018-11-22] MEDS ORDERED: PROMETHAZINE HCL 12.5 MG in SODIUM CHLORIDE 0.9% 50 ML IV PRN (14:39)
[2018-11-22] MEDS ORDERED: DiphenhydrAMINE HCL 50 MG/ML VIAL IV PRN (14:39)
[2018-11-22] MEDS ORDERED: OXAZEPAM 10 MG CAPSULE PO PRN (14:39)
[2018-11-22] MEDS ORDERED: ACETAMINOPHEN 325 MG TAB PO PRN (14:39)
[2018-11-22] MEDS ORDERED: OXYCODONE/ACETAMINOPHEN 5mg/325mg TAB PO PRN (14:39)
[2018-11-22] MEDS ORDERED: MoRPHine SULFATE 2 MG/ML CARP IV PRN (14:39)
--- NOTE | 2018-11-22 15:00 | Anesthesiology Progress Note ---
Date of Service November 22, 2018 Anesthesia Post Procedure Vital Signs Vital Signs: Temp Pulse Pulse Resp BP BP Pulse Ox 11/22/18 14:00 36.9 C 93 H 15 130/97 97 11/22/18 13:50 89 12 127/79 98 11/22/18 13:40 101 H 12 131/77 98 11/22/18 13:30 113 H 16 127/84 97 11/22/18 13:20 37.1 C 113 H 16 134/98 99 11/22/18 13:10 104 H 16 131/91 97 11/22/18 13:00 104 H 16 118/82 94 11/22/18 12:50 105 H 16 114/88 96 11/22/18 12:40 102 H 15 134/88 100 11/22/18 12:30 114 H 21 124/88 99 11/22/18 12:20 108 H 18 154/96 H 98 11/22/18 12:11 36.2 C L 104 H 16 131/93 99 11/22/18 06:30 36.5 C 110 H 18 160/107 H 96 Pain Intensity Bilateral Breast: Pain Intensity: 3 Transfer of Care Handoff Completed per policy Notes Mental Status: alert / awake / arousable and participated in evaluation Patient Amnestic to Procedure: Yes Nausea / Vomiting: adequately controlled Pain: adequately controlled Airway Patency, RR, SpO2: stable & adequate BP & HR: stable & adequate Hydration State: stable & adequate Anesthetic Complications: no major complications apparent and Pt Satisfied with anesthetic care
[2018-11-22] MEDS ORDERED: PHARMACY GLYCEMIC MGMT CONSULT PRN (15:26)
[2018-11-22] MEDS ORDERED: ENOXAPARIN INJ 40 MG/0.4 ML SYR SQ SCH (15:30)
--- NOTE | 2018-11-22 15:41 | Pharmacy Report ---
Pharmacy Glycemic Short Note 2 - Date of Service November 22, 2018 - Glycemic Short BSG Results (Last 24 hours): 11/22/18 11/22/18 06:22 12:16 POC Glucose 123 H 167 H OUTPATIENT ANTIDIABETIC REGIMEN: * N/A * HbA1c: pending with AM labs tomorrow ASSESSMENT: * Ms Kapadia is a 33yo female POD 0 s/p bilateral breast reduction w/ Dr Walton today. * There is no history of diabetes, that I am aware of, however BSGs have been slightly elevated (184 in preop labs, 167 today). * It does not appear as though patient has received any steroids. * Novolog was initiated post-op. * Will evaluate A1c tomorrow with AM labs. PLAN FOR INPATIENT GLYCEMIC CONTROL: * Basal insulin * none at this time * Bolus insulin * NovoLog per scale ACHS or Q6hrs while NPO * Goal Range: Low 120 mg/dL - High 160 mg/dL * Correction Factor: 30 mg/dL/unit * Nutritional / Prandial insulin per carb ratio of 1 unit per 15 grams CHO consumed PLAN FOR DISCHARGE: * pending A1c results
[2018-11-22] MEDS: MoRPHine SULFATE 4 MG/ML 1 ML CARP\\VIAL IV PRN ×2 (15:42→20:26)
[2018-11-22] MEDS ORDERED: GLUCOSE 10 TABS/TUBE PO PRN (15:45)
[2018-11-22] MEDS ORDERED: DEXTROSE 50% 50 ML SYRINGE IV PRN (15:45)
[2018-11-22] MEDS ORDERED: GLUCOSE 40% GEL 15 GM TUBE PO PRN (15:45)
[2018-11-22] MEDS ORDERED: CARBOHYDRATES FOR HYPOGLYCEMIA PO PRN (15:45)
[2018-11-22] MEDS ORDERED: GLUCAGON FOR INJ 1 MG VIAL IM PRN (15:45)
[2018-11-22] MEDS: CLINDAMYCIN 600 MG in DEXTROSE 5% 50 ML IV SCH (15:48)
[2018-11-22] MEDS: CHECK SCOPOLAMINE PATCH PLACEMENT SCH (15:59)
--- NOTE | 2018-11-22 16:18 | Surgery Progress Note ---
Date of Service November 22, 2018 Assessment & Plan (1) Macromastia: Doing well postoperatively Blood glucose monitoring, insulin prn per pharmacy q4 hour nipple checks Subjective Post op check Doing well. Pain controlled Physical Exam Physical Exam: Dressings intact bilaterally NACs pink and viable bilaterally, sensation intact bilaterally no hematomas Results & Data Vital Signs (Past 12 Hours) Vital Signs Temp Pulse Pulse Pulse Resp BP BP 11/22/18 15:35 36.4 C L 100 H 17 125/69 11/22/18 15:06 112 H 23 136/84 11/22/18 14:00 36.9 C 93 H 15 130/97 11/22/18 13:50 89 12 127/79 11/22/18 13:40 101 H 12 131/77 11/22/18 13:30 113 H 16 127/84 11/22/18 13:20 37.1 C 113 H 16 134/98 11/22/18 13:10 104 H 16 131/91 11/22/18 13:00 104 H 16 118/82 11/22/18 12:50 105 H 16 114/88 11/22/18 12:40 102 H 15 134/88 11/22/18 12:30 114 H 21 124/88 11/22/18 12:20 108 H 18 154/96 H 11/22/18 12:11 36.2 C L 104 H 16 131/93 11/22/18 06:30 36.5 C 110 H 18 160/107 H Pulse Ox 11/22/18 15:35 93 11/22/18 15:06 96 11/22/18 14:00 97 11/22/18 13:50 98 11/22/18 13:40 98 11/22/18 13:30 97 11/22/18 13:20 99 11/22/18 13:10 97 11/22/18 13:00 94 11/22/18 12:50 96 11/22/18 12:40 100 11/22/18 12:30 99 11/22/18 12:20 98 11/22/18 12:11 99 11/22/18 06:30 96
[2018-11-22] MEDS ORDERED: Nursing to Pharmacy Communication ONE ×2 (17:06→17:48)
[2018-11-22] MEDS ORDERED: PANTOprazole 40 MG TAB PO STA (17:11)
[2018-11-22] MEDS: LACTATED RINGER'S 1,000 ML IV SCH (17:23)
[2018-11-22] MEDS: INSULIN ASPART 100 UNITS/ML 3 ML PEN SC SCH ×2 (20:09→21:35)
[2018-11-22] MEDS ORDERED: DOXEPIN HCL 75 MG CAPSULE PO SCH (21:00)
[2018-11-22] MEDS ORDERED: DOXEPIN HCL 10 MG CAPSULE PO SCH (21:00)
[2018-11-23] MEDS: CLINDAMYCIN 600 MG in DEXTROSE 5% 50 ML IV SCH ×2 (00:39→06:41)
[2018-11-23] MEDS: CHECK SCOPOLAMINE PATCH PLACEMENT SCH (00:39)
[2018-11-23] MEDS: OXYCODONE/ACETAMINOPHEN 5mg/325mg TAB PO PRN ×3 (00:39→08:38)
[2018-11-23 04:23] VITALS: O2SAT 96
[2018-11-23] MEDS ORDERED: COUGH DROP (SUGAR FREE) LOZ 24 LOZ/1 BOX BUCCAL PRN (04:44)
[2018-11-23] MEDS: LACTATED RINGER'S 1,000 ML IV SCH (06:37)
[2018-11-23 07:42] VITALS: BP 120/83; TEMP 98.6
--- NOTE | 2018-11-23 08:12 | Surgery Progress Note ---
Date of Service November 23, 2018 Assessment & Plan (1) Breast hypertrophy: s/p bilateral breast reduction POD#1. Left drain removed. Patient d/c home with office follow-up tomorrow. Discussed DM concern and patient to call her PCP today. Reviewed importance of continued smoking cessation. Subjective Patient complains of pain and requests additional script for narcotics at home. She is tolerating regular diet. Seen my pharmacy and A1C pending- bedside g lucose checks elevated. Patient reports right drain fell out over night. Physical Exam Constitutional: WD/WN, vitals as above no acute distress Skin: + incision (CDI. nipples viable. no sensation on right nipple- good cap refill) Results & Data Vital Signs (Past 12 Hours) Vital Signs Temp Pulse Resp BP Pulse Ox 11/23/18 07:39 37 C 110 H 18 120/83 96 11/23/18 04:00 36.9 C 102 H 18 118/69 96 11/22/18 23:05 36.9 C 98 H 18 111/75 94 Laboratory Results Abnormal lab results 11/22/18 11/22/18 11/22/18 Range/Units 12:16 17:29 21:18 POC Glucose 167 H 160 H 144 H (70-99)
--- NOTE | 2018-11-23 08:18 | Discharge Summary ---
Date of Service November 23, 2018 Admission HPI Per Admitting Provider see admission H&P Admission Exam Per Admitting Provider see admission H&P Principal Diagnosis breast hypertrophy Discharge Exam Constitutional WD/WN, vitals as above no acute distress Skin + incision (CDI. nipples viable. no sensation on right nipple- good cap refill) Discharge Data Allergies Allergy/AdvReac Type Severity Reaction Status Date / Time Penicillins Allergy Unknown rash Verified 11/22/18 06:27 Procedures Performed Operation Date: 11/22/18 07:30 Actual Procedures p Bilateral Reduction Mammoplasty(Bilateral) - Josefa An MD Hospital Course (1) Breast hypertrophy: Patient presented to [facility] with history of symptomatic macromastia. her fasting glucose was elevated at pre-op labs. She was taken to the OR and underwent bilateral breast reduction. There were no intraoperative complications. She was taken to recovery and transferred to med/surg for observation. Her right drain fell out over night. On POD#1, she was feeling well but complains of pain only controlled with taking two Percocet. Bedside glucose checks remain elevated adn pharmacy consulted to glycemic control. She was tolerating a regular diet and ambulating. On exam, her vitals were stable. Her incisions were CDI and nipples viable. Her left drain was removed. She was discharged home with instructions to follow-up in the office in one day and call her PCP to discuss elevated blood glucose. Total Time Total Time Spent Total Time Spent (In Minutes): 10 Total Time Includes: Examination of the Patient, Discharge Planning and Medication Reconciliation Discharge Plan Discharge Items Patient Disposition: Home - Self-Care Reason For Visit: SYMPTOMATIC MACROMASTIA Discharge Diagnosis: s/p bilateral breast reduction Discharge Goals: Decrease discomfort and Improve function Activity: As commented below Non-emergency contact: Surgeon Call non-emergency contact if: you have any medication questions, your pain is not controlled, you have a fever, your wound has increased redness and your wound has increased drainage Follow-up/Referrals: PCP,NO [Primary Care Provider] - (CALL YOUR PCP TODAY TO DISCUSS ELEVATED SUGARS AND POSSIBLE DIABETES DIAGNOSIS) Diet: Regular Addtl Provider Instructions: ACTIVITY RECOMMENDATIONS: __Normal activities _X_No bending, lifting or straining __No driving __Driving allowed when you are off pain medications _X_Walking permitted __You should have help at home for ___ days DRESSINGS: __No dressings required X_Keep dressings dry/in place until first office visit __Remove dressings ___ and leave dressings off __Apply ice ___ days __Remove dressings and reapply garment __Apply antibiotic ointment (Bacitracin, Neosporin, etc) to wounds 3-4 times/day for 10 days BATHING: _X_Keep dressings dry _X_Sponge bathing permitted __Showering permitted _X_No swimming, hot tubs or soaking in a tub MEDICATIONS: Resume previous medications unless instructed otherwise by your surgeon. _X_Do not use aspirin, Motrin, Advil or Ibuprofen as these may promote bleeding. Please use Tylenol. X__Prescription(s) provided: Pain medication was provided at your last office visit OTHER INSTRUCTIONS: __Record drain output 2-3 times per day SPECIAL CARE INSTRUCTIONS: * It is normal to have a mild fever after surgery. If your temperature is higher than 101.5 degrees F, please call the office at [phone]. * Constipation is a typical side effect of pain medication. An [id number] stool softener will help relieve this. * Leaking around surgical drains may occur and should not cause concern. Sometimes these drains become clogged. If this happens, remove the bulb and milk the clot out of the tube, then replace the bulb. * Drainage from wounds after liposuction is normal and should be expected. Garments will become soiled. You should protect furniture and bedding. This drainage should mostly subside within 2-3 days. Leave garments in place unless instructed to remove them. * If you have unusual drainage from a wound or are concerned you have an infection or have any questions or concerns, please call the office at [phone]. FOLLOW UP VISIT: If not already scheduled, please call the office, , when you return home after surgery to schedule an appointment to be seen in __1_ days. Call your PCP today for urgent appointment to discuss diabetes. Prescriptions: Continued doxepin 10 mg Capsule 10 mg PO BID RF: 0 omeprazole 20 mg Capsule,Delayed Release(Dr/Ec) 20 mg PO QAM RF: 0 fluoxetine 20 mg Capsule 60 mg PO QAM RF: 0 doxepin 150 mg Capsule 150 mg PO HS RF: 0 Stand-Alone Forms: [facility] Discharge Orders: Discharge Order (Routine); Ordered 11/23/18 Ordered By: Rachel Mayorga Admission Data Admit Date/Time: 11/22/18 12:33 Attending Provider: Josefa An Admit Provider: Josefa An Primary Care Provider: PCP,NO Service: Surgical Services Other Pending Studies at Discharge: Yes Studies:: pathology
[2018-11-23] MEDS ORDERED: PANTOprazole 40 MG TAB PO SCH (09:00)
[2018-11-23] MEDS ORDERED: DOXEPIN HCL 10 MG CAPSULE PO SCH (09:00)
[2018-11-23] MEDS ORDERED: FLUOXETINE HCL 20 MG CAP PO SCH (09:00)
[2018-11-23] MEDS ORDERED: MULTIVITAMIN TAB PO SCH (09:00)
[2018-11-23] MEDS: INSULIN ASPART 100 UNITS/ML 3 ML PEN SC SCH (09:29)
[2018-11-23 09:52] LABS: Estimated Average Glucose 140 mg/dl; Hemoglobin A1C 6.5 % (4.5-5.6)
[2018-11-23 10:10] VITALS: PULSE 93
[2018-11-24] MEDS ORDERED: ENOXAPARIN INJ 40 MG/0.4 ML SYR SQ SCH (09:00)
== END 2018-11-23 10:55 | disposition home or self-care (01) ==
LOC: 3W 05:59 → ASU 05:59
DX: Z79.899 Other long term (current) drug therapy; E66.9 Obesity, unspecified; Z68.37 Body mass index [BMI] 37.0-37.9, adult; F32.9 Major depressive disorder, single episode, unspecified; F17.210 Nicotine dependence, cigarettes, uncomplicated; K21.9 Gastro-esophageal reflux disease without esophagitis; N60.12 Diffuse cystic mastopathy of left breast; Z88.0 Allergy status to penicillin; N62 Hypertrophy of breast; N60.11 Diffuse cystic mastopathy of right breast

== ENCOUNTER 2019-02-07 19:41 | Observation (INO) ==
[2019-02-07] MEDS ORDERED: MoRPHine SULFATE 4 MG/ML 1 ML CARP\\VIAL IV STA (20:07)
[2019-02-07] MEDS ORDERED: ONDANSETRON INJ 2 MG/ML 2 ML VIAL IV STA (20:07)
[2019-02-07] MEDS ORDERED: SODIUM CHLORIDE 0.9% 1000ML 1,000 ML IV ONE (20:07)
[2019-02-07 20:19] LABS: Appearance Urine Clear (Clear); Bilirubin Urine Negative (Negative); Blood Urine Negative (Negative); Color Urine Yellow; Glucose Urine UA Negative (Negative); Ketones Urine Negative (Negative); Leukocyte Esterase Urine Negative (Negative); Nitrite Urine Negative (Negative); Protein Urine Negative (Negative); Specific Gravity Urine 1.011 (1.000-1.030); Urobilinogen Urine Negative (Negative); pH Urine 6.5 (4.5-7.5)
[2019-02-07 20:20] LABS: Basophils # (auto) 0.03 K/uL (0-0.2); Basophils % (auto) 0.3 %; Eosinophils # (auto) 0.16 K/uL (0-0.5); Eosinophils % (auto) 1.6 %; Hematocrit (blood only) 35.4 % (37-47); Hemoglobin 11.2 g/dL (12.0-16.0); Immature Granulocytes # (auto) 0.02 K/uL (0.00-0.02); Immature Granulocytes % (auto) 0.2 %; Lymphocytes % (auto) 41.3 %; Mean Corpuscular Hemoglobin 28.8 pg (25-34); Mean Corpuscular Hgb Conc 31.6 g/dL (32-36); Mean Platelet Volume 9.8 fL (7.4-10.4); Monocytes # (auto) 0.42 K/uL (0.11-0.59); Monocytes % (auto) 4.2 %; Neutrophils % (auto) 52.4 %; Platelet Count 407 K/uL (130-400); RDW Coefficient of Variation 15.8 % (11.5-14.5); RDW Standard Deviation 52.9 fL (36.4-46.3); Red Blood Count 3.89 M/uL (4.2-5.4); White Blood Count 9.93 K/uL (4.8-10.8)
[2019-02-07 20:45] LABS: Albumin Globulin Ratio 0.8 (0.9-2); Albumin Level 3.4 gm/dl (3.4-5.0); BUN Creatinine Ratio 13.2 (10-20); Bilirubin,Total 0.3 mg/dl (0.2-1); Calcium 8.6 mg/dl (8.5-10.1); Creatinine Clr Calc Pharmacy 104.8 ml/min; Est GFR (African American) 99.4; Est GFR (Non-African American) 85.8; Globulin 4.2 gm/dl (2.5-4.0); Total Protein 7.6 gm/dl (6.4-8.2)
[2019-02-07 20:58] LABS: Potassium 3.4 mmol/L (3.5-5.1)
--- NOTE | 2019-02-07 21:57 | CT Scan Report ---
CT OF THE ABDOMEN AND PELVIS WITHOUT CONTRAST CLINICAL HISTORY: Left flank pain. Evaluate for stone or diverticulitis. COMPARISON STUDY: CT of the abdomen and pelvis November 10, 2018. TECHNIQUE: Axial images of the abdomen and pelvis were obtained without IV contrast. Images were revi ewed in the axial, sagittal, and coronal planes. Automated exposure control was utilized for the rochelle dy. A dose lowering technique was utilized adhering to the principles of ALARA. FINDINGS: No renal, ureteral or bladder calculi are present. There is no hydronephrosis or hydrourete r. Evaluation of the remainder of the abdomen and pelvis is suboptimal on this unenhanced exam. The l iver, spleen, adrenal glands and pancreas are unremarkable. There is no biliary ductal dilatation sta tus post cholecystectomy. The appendix is surgically absent. 3 cm right ovarian cyst is noted. Follic le within the left ovary is noted. There are no suspicious osseous lesions. There is no evidence for a bowel obstruction. IMPRESSION: 1. No urinary calculi or hydronephrosis. 2. No acute process within the abdomen or pelvis on unenhanced exam. 3. 3 cm right ovarian cyst. Electronically signed by: Johnyn Arce M.D. 02/07/2019 9:56 PM
[2019-02-07] MEDS ORDERED: MoRPHine SULFATE 2 MG/ML CARP IV STA (22:04)
--- NOTE | 2019-02-07 22:48 | Emergency Department Note ---
Entered by Delmis Carver acting as a scribe for History of Present Illness General Chief complaint: Abdominal Pain Stated complaint: SEVERE PELVIC PAIN ON LEFT SIDE Source: patient History of Present Illness Onset (ago): day(s) 3 Location: abdomen Radiation: back and other (Vagina) Severity: severe Pain Consistency: + intermittent Maximum Pain Intensity: 9 Quality: + sharp and + other (Shooting) Associated symptoms: + nausea/vomiting (Positive nausea. Negative vomiting. ) and + other (Positive abdominal pain, dark colored diarrhea, abnormal vaginal discharge, dysuria, pain with intercourse. Negative abnormal vaginal bleeding, hematuria, bloody stools.); no fever/chills Treatments prior to arrival: none The patient is a 33 year old female presenting to the Emergency Department complaining of intermittent abdominal pain starting 3 days ago. The patient reports that she has severe left-sided abdominal pain that radiates to her back and vagina. She explains that this pain is sharp and shooting. She states that she is nauseous and has dark colored diarrhea. She notes that she has abnormal vaginal discharge that is colorless but does have an odor. She adds that she has intermittent dysuria and sometimes experiences pain with intercourse. The patient reports that she went to her PCP earlier today for these same symptoms but that she was not treated for her abdominal pain. 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 She denies abnormal vaginal bleeding, fever, chills, vomiting, hematuria, bloody stools, history of kidney stones and STDs. Home Medications Home Medications Medication Instructions Recorded Confirmed Type omeprazole 20 mg PO QAM 11/09/18 02/07/19 History lisinopril 5 mg tablet 5 mg PO DAILY #30 tab 01/30/19 02/07/19 Rx metformin 500 mg tablet 500 mg PO BID #60 tab 01/30/19 02/07/19 Rx doxepin 200 mg PO HS 02/07/19 02/07/19 History doxepin 25 mg capsule 25 mg PO BID #180 cap 02/07/19 02/07/19 Rx fluoxetine [Prozac] 80 mg PO DAILY 02/07/19 02/07/19 History hydrocodone-acetaminophen 1 tab PO DAILY PRN 02/07/19 02/07/19 History Allergies Allergy/AdvReac Type Severity Reaction Status Date / Time Penicillins Allergy Unknown rash Verified 02/07/19 15:58 Past Med/Surg History Medical History Degenerative disc disease HTN (hypertension) T2DM (type 2 diabetes mellitus) Sciatica Bipolar disorder Major depression Anxiety Scoliosis Acid reflux CONTROLLED Obesity Breast hypertrophy Macromastia Bronchitis (Resolved) wound infection (Resolved) Complete (Resolved 03/03/13) Pneumonia (Resolved) Sinusitis (Resolved) uterine contractions, antepartum (08/13/13) Surgical History History of 3 sections History of appendectomy Lap appe: 01/22/16: Grade I view, Gonzáles #2, ETT 7 at [facility] History of cholecystectomy History of open reduction and internal fixation (ORIF) procedure LEFT ANKLE History of tooth extraction S/P tonsillectomy S/P tubal ligation Family History Grandmother Family history of breast cancer Diabetes Brother Diabetes Father Hypertension Mother Hypertension Social History Preferred Language: Libyan Communication Ability: Effective Deputy Chief Counsel Required: No Beliefs That Will Affect Care: None Current Living Situation: Spouse Feels Safe at Home: Yes Smoking Status: Current some day smoker Tobacco Type: cigarettes ; Hx Alcohol Use: No Hx Substance Use: No Review of Systems See HPI for pertinent positives & negatives. and A total of 10 systems reviewed and were otherwise negative Physical Exam Vital Signs Vital Signs - 24 hr 02/07/19 19:43 02/07/19 20:15 02/07/19 22:13 Temperature 36.9 C Temperature Source Oral Sepsis Recent Fever Within 48 Hours No Sepsis Action Taken by Nursing No Action Required Pulse Rate 108 H Pulse Rate [Apical] 92 H 98 H Respiratory Rate 20 24 17 Respiratory Effort / Characteristics Non-Labored Spontaneous Respiratory Depth Normal Blood Pressure 154/105 H Blood Pressure [Left Arm] 148/102 H 144/97 H Blood Pressure Mean 121 Blood Pressure Mean [Left Arm] 117 112 Pulse Oximetry 99 100 100 Oxygen Delivery Method Room Air Room Air Room Air Constitutional: Vital signs reviewed. Eyes: Pupils are equal round reactive to light. Conjunctiva are noninjected. ENT: Pharynx is clear without erythema or exudate. Mucous membranes are moist. Neck supple without meningeal signs. Respiratory: Clear to auscultation bilaterally. Breath sounds are equal bilaterally. Cardiovascular: Regular rate and rhythm. No rubs or gallops. GI: Soft and nondistended.Bowel sounds are present. Left sided abdominal tenderness. No guarding. No CVA tenderness. Pelvic: Mild white-becky discharge. No external lesions. No CMT or significant adnexal or uterine tenderness or fullness. Rectal: Guaiac positive with light brown stool. Musculoskeletal: No peripheral edema. No lower extremity tenderness. Integumentary: No cyanosis. Neurological: The patient is awake and alert. No focal deficits. Psychiatric: Normal affect. Course 2000: The patient was evaluated in room C5, and a complete history and physical examination were performed. 2200: I reevaluated the patient at this time. I discussed her test results with her. 2229: I performed a pelvic and rectal exam at this time. See physical exam for findings. 2236: I discussed the patient's case with Dr. Will HAWKINS hospitalist. She will evaluate the patient for further management. Consultations Consultation #1: I discussed the patient's case with Dr. Will HAWKINS hospitalist. She will evaluate the patient for further management. Time: 22:37 Administered Medications Discontinued Medications Sodium Chloride (Nss 1000ml) 1,000 mls @ 999 mls/hr IV .Q1H1M ONE Stop: 02/07/19 21:07 Last Infusion: 02/07/19 21:17 Dose: 0 mls/hr Documented by: [id number] Admin: 02/07/19 20:11 Dose: 999 mls/hr Documented by: [id number] Morphine Sulfate (Morphine Sulfate) 4 mg IV NOW STA Stop: 02/07/19 20:08 Last Admin: 02/07/19 20:16 Dose: 4 mg Documented by: [id number] Morphine Sulfate (Morphine Sulfate) 2 mg IV NOW STA Stop: 02/07/19 22:05 Last Admin: 02/07/19 22:15 Dose: 2 mg Documented by: [id number] Ondansetron HCl (Zofran) 4 mg IV NOW STA Stop: 02/07/19 20:08 Last Admin: 02/07/19 20:16 Dose: 4 mg Documented by: [id number] Medical Decision Making Differential Diagnosis Differential diagnoses include kidney stone, hydronephrosis, diverticulitis, ovarian cyst and colitis amongst others. Medical Records Attestation: I reviewed the patient's medical records. I did perform a limited focused review of portions of the patient's old chart on the electronic medical record. The patient was seen by her PCP today for chronic back pain and degenerative disc disease. No reported abdominal pain. Home Medications Current Medication List: was personally reviewed by me Laboratory Data Attestation: I reviewed the patient's lab results. Result diagrams: 02/07/19 19:54 02/07/19 19:54 Lab Results 02/07/19 02/07/19 02/07/19 Range/Units 19:54 19:54 19:54 WBC 9.93 (4.8-10.8) K/uL RBC 3.89 L (4.2-5.4) M/uL Hgb 11.2 L (12.0-16.0) g/dL Hct 35.4 L (37-47) % MCV 91.0 (80-100) fL MCH 28.8 (25-34) pg MCHC 31.6 L (32-36) g/dL RDW Std Deviation 52.9 H (36.4-46.3) fL RDW Coeff of Aakash 15.8 H (11.5-14.5) % Plt Count 407 H (130-400) K/uL MPV 9.8 (7.4-10.4) fL Immature Gran % (Auto) 0.2 % Neut % (Auto) 52.4 % Lymph % (Auto) 41.3 % Gage % (Auto) 4.2 % Eos % (Auto) 1.6 % Baso % (Auto) 0.3 % Immature Gran # (Auto) 0.02 (0.00-0.02) K/uL Neut # (Auto) 5.20 (1.4-6.5) K/uL Lymph # (Auto) 4.10 H (1.2-3.4) K/uL Gage # (Auto) 0.42 (0.11-0.59) K/uL Eos # (Auto) 0.16 (0-0.5) K/uL Baso # (Auto) 0.03 (0-0.2) K/uL Sodium 141 (136-145) mmol/L Potassium 3.4 L (3.5-5.1) mmol/L Chloride 109 H (98-107) mmol/L Carbon Dioxide 26 (21-32) mmol/L Anion Gap 7.0 (3-11) BUN 12 (7-18) mg/dl Creatinine 0.89 (0.6-1.2) mg/dl Est Cr Clr Drug Dosing 104.8 ml/min Est GFR ( Amer) 99.4 Est GFR (Non-Af Amer) 85.8 BUN/Creatinine Ratio 13.2 (10-20) Glucose 102 H (70-99) mg/dl Calcium 8.6 (8.5-10.1) mg/dl Total Bilirubin 0.3 (0.2-1) mg/dl AST 13 L (15-37) U/L ALT 27 (12-78) U/L Alkaline Phosphatase 105 (45-117) U/L Total Protein 7.6 (6.4-8.2) gm/dl Albumin 3.4 (3.4-5.0) gm/dl Globulin 4.2 H (2.5-4.0) gm/dl Albumin/Globulin Ratio 0.8 L (0.9-2) Lipase 183 (73-393) U/L Urine Color Yellow Urine Appearance Clear (Clear) Urine pH 6.5 (4.5-7.5) Ur Specific Keaton 1.011 (1.000-1.030) Urine Protein Negative (Negative) Urine Glucose (UA) Negative (Negative) Urine Ketones Negative (Negative) Urine Blood Negative (Negative) Urine Nitrite Negative (Negative) Urine Bilirubin Negative (Negative) Urine Urobilinogen Negative (Negative) Ur Leukocyte Esterase Negative (Negative) POC Ur Test (NEG) 02/07/19 Range/Units 19:54 WBC (4.8-10.8) K/uL RBC (4.2-5.4) M/uL Hgb (12.0-16.0) g/dL Hct (37-47) % MCV (80-100) fL MCH (25-34) pg MCHC (32-36) g/dL RDW Std Deviation (36.4-46.3) fL RDW Coeff of Aakash (11.5-14.5) % Plt Count (130-400) K/uL MPV (7.4-10.4) fL Immature Gran % (Auto) % Neut % (Auto) % Lymph % (Auto) % Gage % (Auto) % Eos % (Auto) % Baso % (Auto) % Immature Gran # (Auto) (0.00-0.02) K/uL Neut # (Auto) (1.4-6.5) K/uL Lymph # (Auto) (1.2-3.4) K/uL Gage # (Auto) (0.11-0.59) K/uL Eos # (Auto) (0-0.5) K/uL Baso # (Auto) (0-0.2) K/uL Sodium (136-145) mmol/L Potassium (3.5-5.1) mmol/L Chloride (98-107) mmol/L Carbon Dioxide (21-32) mmol/L Anion Gap (3-11) BUN (7-18) mg/dl Creatinine (0.6-1.2) mg/dl Est Cr Clr Drug Dosing ml/min Est GFR ( Amer) Est GFR (Non-Af Amer) BUN/Creatinine Ratio (10-20) Glucose (70-99) mg/dl Calcium (8.5-10.1) mg/dl Total Bilirubin (0.2-1) mg/dl AST (15-37) U/L ALT (12-78) U/L Alkaline Phosphatase (45-117) U/L Total Protein (6.4-8.2) gm/dl Albumin (3.4-5.0) gm/dl Globulin (2.5-4.0) gm/dl Albumin/Globulin Ratio (0.9-2) Lipase (73-393) U/L Urine Color Urine Appearance (Clear) Urine pH (4.5-7.5) Ur Specific Keaton (1.000-1.030) Urine Protein (Negative) Urine Glucose (UA) (Negative) Urine Ketones (Negative) Urine Blood (Negative) Urine Nitrite (Negative) Urine Bilirubin (Negative) Urine Urobilinogen (Negative) Ur Leukocyte Esterase (Negative) POC Ur Test NEG (NEG) Imaging Data Radiologist's Impression: Radiology results as stated below per my review and the radiologist's interpretation: CT OF THE ABDOMEN AND PELVIS WITHOUT CONTRAST CLINICAL HISTORY: Left flank pain. Evaluate for stone or diverticulitis. COMPARISON STUDY: CT of the abdomen and pelvis November 10, 2018. TECHNIQUE: Axial images of the abdomen and pelvis were obtained without IV contrast. Images were reviewed in the axial, sagittal, and coronal planes. Automated exposure control was utilized for the study. A dose lowering technique was utilized adhering to the principles of ALARA. FINDINGS: No renal, ureteral or bladder calculi are present. There is no hydronephrosis or hydroureter. Evaluation of the remainder of the abdomen and pelvis is suboptimal on this unenhanced exam. The liver, spleen, adrenal glands and pancreas are unremarkable. There is no biliary ductal dilatation status post cholecystectomy. The appendix is surgically absent. 3 cm right ovarian cyst is noted. Follicle within the left ovary is noted. There are no suspicious osseous lesions. There is no evidence for a bowel obstruction. IMPRESSION: 1. No urinary calculi or hydronephrosis. 2. No acute process within the abdomen or pelvis on unenhanced exam. 3. 3 cm right ovarian cyst. Electronically signed by: Johnny Arce M.D. 02/07/2019 9:56 PM Blood Pressure Blood Pressure Findings: Elevated blood pressure Blood Pressure Disposition: further management by hospitalist ANANTH Weiss I did evaluate the patient as noted above. The patient is presenting with left- sided flank pain. She also complains of black stools and some mild vaginal discharge. She states she is monogamous with her . IV access was establ ished. The patient was placed on a continuous air sampling and monitoring. I did treat her with IV morphine and Zofran. I did order a urine analysis. There is no evidence of infection. She is not . I did order and review the patient's blood work as noted in the electronic medical record. Her white count is not elevated but her hemoglobin is 11.2. This is down from 13 in November. I did order a CT of the abdomen and pelvis. I did review the images myself as well as the radiology report as described above. There is no evidence of acute intra-abdominal process. She does have a right-sided ovarian cyst. I did perform a pelvic and rectal examination. The pelvic examination was unremarkable but I did send cultures which are currently pending. The rectal examination showed no evidence of melena or blood but she did have guaiac positive light brown stool. Given her persistent abdominal pain with a drop in her hemoglobin with guaiac positive stools I did recommend hospitalization for further evaluation and H&H's. 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 She was given additional morphine 2 mg IV for pain. Impression & Plan Left sided abdominal pain, GI bleed, Anemia, Cyst of right ovary Discharge Plan Visit Data Chief Complaint: Abdominal Pain Stated Complaint: SEVERE PELVIC PAIN ON LEFT SIDE ED Provider: Joe Arzate Discharge Problem: Left sided abdominal pain, GI bleed, Anemia, Cyst of right ovary Patient Disposition: Being Evaluated by Hospitalist Forms Stand Alone Forms: Call Back Authorization, My [facility] Prescriptions Prescriptions: No Action metformin 500 mg tablet 500 mg PO BID Qty: 60 RF: 2 lisinopril 5 mg tablet 5 mg PO DAILY Qty: 30 RF: 2 doxepin 25 mg capsule 25 mg PO BID Qty: 180 RF: 1 fluoxetine [Prozac] 40 mg Capsule 80 mg PO DAILY RF: 0 doxepin 100 mg capsule 200 mg PO HS RF: 0 hydrocodone-acetaminophen 5-325 mg Tablet 1 tab PO DAILY PRN (Reason: Pain) RF: 0 omeprazole 20 mg Capsule,Delayed Release(Dr/Ec) 20 mg PO QAM RF: 0 Referrals Referrals: Claudia Villalobos DO [Primary Care Provider] - The scribe's documentation has been prepared under my direction and personally reviewed by me in its entirety. I confirm that the note above accurately reflects all work, treatment, procedures, and medical decision making performed by me.
--- NOTE | 2019-02-08 01:01 | History & Physical Report ---
Date of Service February 08, 2019 Assessment & Plan (1) GI bleed: 33yoF with hx of GERD, DM2, HTN, HLD, depression, anxiety, bipolar, degenerative disc disease, scoliosis presents with abdominal pain nausea, and dark diarrhea x 13 days. Concern for GI bleed. Stool guaic positive. Abdominal pain, dark diarrhea: Concern for GI bleed vs. infectious etiology Afebrile, no WBC elevation CT abdomen: no acute findings, 3cm R ovarian cyst Hgb 11.2 (don from 13 in october/november 2018) Stool Guaic positive in ED Stool Cx and studies ordered C. diff ordered On carafate QID and protonix BID Started on Bentyl 20mg QID GI consulted Repeat CBC in the AM Hypokalemia K 3.4 Repleted 40meq KCL PO Vaginal clear discharge with odor and dysuria UA negative Vaginal Cx collected in the ED and pending Trichomonas prep negative in ED N. Gonorrhea RNA pending HTN Continue home lisinopril DM2 Hold home metformin BSG per unit protocol, SSI Depression/anxiety/Bipolar Continue home doxepin, and fluoxetine Chronic back pain/degenerative disc disease/scoliosis Continue home norco prn FEN/GI: NPO for possible procedure tomorrow Code: Full DVT prop: SCDs only, low risk, chemical contraindicated Dispo: med/surg FEN/GI: NPO for possible procedure (2) HTN (hypertension): (3) T2DM (type 2 diabetes mellitus): (4) Major depression: (5) Anxiety: (6) Scoliosis: (7) Acid reflux: (8) Abdominal pain: (9) Diarrhea: History of Present Illness Chief Complaint: Dark Diarrhea and Abdominal Pain Primary Care Provider: Claudia Villalobos DO 33yoF with hx of GERD, DM2, HTN, HLD, depression, anxiety, bipolar, degenerative disc disease, scoliosis presents with abdominal pain and diarrhea x 13 days. Reports started having diffuse abdominal pain, n/v, and dark diarrhea and went to [facility] where she stayed in the ED for several hours as her potassium was really low. Since then she continues to have intermittent abdominal pain more so over LLQ and lower abdomen described as sharp/shooting and 8/10. Associated with nausea, black non-bloody diarrhea (4-5 episodes per day), bowel incontinence noted today, and decreased appetite. Denies any fever, chills, hematuria, cp, sob, WHITLEY, dizziness. Also reports occasional dysuria, clear vaginal discharge with odor and discomfort with sexual intercourse. Denies hx of previous vaginal infections including yeast infections, no vaginal bleeding. Hx of chronic back pain. Surgical Hx: appendectomy, cholecystectomy, tubal ligation, T&A, L ankle surgery, Social Hx: smokes cigarettes for 20 years 1/2 ppd recently decreased to 1-2 cig/day, denies alcohol or recreational drug use Allergies Allergy/AdvReac Type Severity Reaction Status Date / Time Penicillins Allergy Unknown rash Verified 02/07/19 15:58 Home Medications Home Medications Medication Instructions Recorded Confirmed Type omeprazole 20 mg PO QAM 11/09/18 02/07/19 History lisinopril 5 mg tablet 5 mg PO DAILY #30 tab 01/30/19 02/07/19 Rx metformin 500 mg tablet 500 mg PO BID #60 tab 01/30/19 02/07/19 Rx doxepin 200 mg PO HS 02/07/19 02/07/19 History doxepin 25 mg capsule 25 mg PO BID #180 cap 02/07/19 02/07/19 Rx fluoxetine [Prozac] 80 mg PO DAILY 02/07/19 02/07/19 History hydrocodone-acetaminophen 1 tab PO DAILY PRN 02/07/19 02/07/19 History Past Med/Surg History Medical History Degenerative disc disease HTN (hypertension) T2DM (type 2 diabetes mellitus) Sciatica Bipolar disorder Major depression Anxiety Scoliosis Acid reflux CONTROLLED Obesity Breast hypertrophy Macromastia Bronchitis (Resolved) wound infection (Resolved) Complete (Resolved 03/03/13) Pneumonia (Resolved) Sinusitis (Resolved) uterine contractions, antepartum (08/13/13) Surgical History History of 3 sections History of appendectomy Lap appe: 01/22/16: Grade I view, Gonzáles #2, ETT 7 at [facility] History of cholecystectomy History of open reduction and internal fixation (ORIF) procedure LEFT ANKLE History of tooth extraction S/P tonsillectomy S/P tubal ligation Family History Grandmother Family history of breast cancer Diabetes Brother Diabetes Father Hypertension Mother Hypertension Social History Preferred Language: Portuguese Communication Ability: Effective 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 Required: No Beliefs That Will Affect Care: None Current Living Situation: Spouse Other Information That Helps Us Care for You: No Feels Safe at Home: Yes Safety Concerns: Feels Safe At This Time Smoking Status: Current every day smoker Tobacco Type: cigarettes ; Cigarettes Per Day: 1 or 2 cigarettes per day per patient ; Do You Dip or Chew Tobacco: No ; Second Hand Exposure: No ; Tobacco Cessation Education Requested by Patient: No Hx Alcohol Use: No Hx Substance Use: No Review of Systems Review of Systems: As per HPI Physical Exam Physical Exam: General: In NAD HEENT: dry mucous membranes Neuro: A&O x 4 Pulm: CTAB, equal breath sounds bilaterally CV: RRR, no m/r/g Abdomen:+BS hyperactive, mild TTP in all quadrants, obese LE: no LE edema, no calf TTP Results & Data Vital Signs (Past 12 Hours) Vital Signs Temp Pulse Pulse Resp BP BP Pulse Ox 02/07/19 23:50 99 H 18 135/98 97 02/07/19 22:13 98 H 17 144/97 H 100 02/07/19 20:15 92 H 24 148/102 H 100 02/07/19 19:43 36.9 C 108 H 20 154/105 H 99 Laboratory Results Abnormal lab results 02/07/19 02/07/19 Range/Units 19:54 19:54 RBC 3.89 L (4.2-5.4) M/uL Hgb 11.2 L (12.0-16.0) g/dL Hct 35.4 L (37-47) % MCHC 31.6 L (32-36) g/dL RDW Std Deviation 52.9 H (36.4-46.3) fL RDW Coeff of Aakash 15.8 H (11.5-14.5) % Plt Count 407 H (130-400) K/uL Lymph # (Auto) 4.10 H (1.2-3.4) K/uL Potassium 3.4 L (3.5-5.1) mmol/L Chloride 109 H (98-107) mmol/L Glucose 102 H (70-99) mg/dl AST 13 L (15-37) U/L Globulin 4.2 H (2.5-4.0) gm/dl Albumin/Globulin Ratio 0.8 L (0.9-2) Diagnostic Findings CT OF THE ABDOMEN AND PELVIS WITHOUT CONTRAST CLINICAL HISTORY: Left flank pain. Evaluate for stone or diverticulitis. COMPARISON STUDY: CT of the abdomen and pelvis November 10, 2018. TECHNIQUE: Axial images of the abdomen and pelvis were obtained without IV contrast. Images were reviewed in the axial, sagittal, and coronal planes. Automated exposure control was utilized for the study. A dose lowering technique was utilized adhering to the principles of ALARA. FINDINGS: No renal, ureteral or bladder calculi are present. There is no hydronephrosis or hydroureter. Evaluation of the remainder of the abdomen and pelvis is suboptimal on this unenhanced exam. The liver, spleen, adrenal glands and pancreas are unremarkable. There is no biliary ductal dilatation status post cholecystectomy. The appendix is surgically absent. 3 cm right ovarian cyst is noted. Follicle within the left ovary is noted. There are no suspicious osseous lesions. There is no evidence for a bowel obstruction. IMPRESSION: 1. No urinary calculi or hydronephrosis. 2. No acute process within the abdomen or pelvis on unenhanced exam. 3. 3 cm right ovarian cyst. Medications Administered Current Inpatient Medications Acetaminophen (Tylenol) 650 mg PO Q4H PRN PRN Reason: pain/fever Stop: 03/10/19 01:08 Hydrocodone Bitart/Acetaminophen ([place] 5/325) 1 tab PO DAILY PRN PRN Reason: Pain Stop: 02/22/19 01:08 Dicyclomine HCl (Bentyl) 20 mg PO QID LAXMI Stop: 03/10/19 08:59 Doxepin HCl (Sinequan) 25 mg PO BID LAXMI Stop: 03/10/19 08:59 Doxepin HCl (Sinequan) 200 mg PO HS LAXMI Stop: 03/10/19 20:59 Fluoxetine HCl (Prozac) 80 mg PO DAILY LAXMI Stop: 03/10/19 08:59 Lactated Ringer's (Lr) 1,000 mls @ 125 mls/hr IV .Q8H LAXMI Stop: 03/10/19 01:08 Lisinopril (Zestril) 5 mg PO DAILY LAXMI Stop: 03/10/19 08:59 Metformin HCl (Glucophage) 500 mg PO BID LAXMI Stop: 03/10/19 08:59 Morphine Sulfate (Morphine Sulfate) 2 mg IV Q3H PRN PRN Reason: Pain Stop: 02/22/19 01:08 Ondansetron HCl (Zofran) 4 mg IV Q6H PRN PRN Reason: Nausea Stop: 03/10/19 01:08 Pantoprazole Sodium (Protonix) 40 mg PO BID LAXMI Stop: 03/10/19 01:08 Potassium Chloride (Klor-Con M20) 40 meq PO NOW STA Stop: 02/08/19 01:10 Sucralfate (Carafate) 1 gm PO QID LAXMI Stop: 03/10/19 08:59 Code Status & VTE Plan Code Status Full VTE Prophylaxis Plan VTE Prophylaxis will be ordered: Yes Supervising Physician Co-Signing Physician Notes Patient seen and examined, chart reviewed, case discussed with Dr. Don and agree with her assessment and plan as documented above. Briefly patient is a 34-year-old female presenting with 13 days of abdominal pain, nausea, vomiting and diarrhea. She was seen prior for this complaint and was given potassium supplementation for hypokalemia. Patient reports multiple episodes of watery diarrhea, sharp shooting abdominal pain, fecal incontinence. No recent antibiotics, travel, dietary changes. No contacts with similar complaints On physical exam patient is afebrile, hemodynamically stable, no acute distress Skin is warm dry and intact with no rashes or lesions HEENT with normocephalic atraumatic, pupils equal and reactive to light, extraocular muscle intact, moist mucous membranes Heart-+ S1/S2, regular, no M/R/G Lungs-CTA Abdomen-hypoactive bowel sounds, mild tenderness with deep palpation, no rebound/guarding/peritoneal signs Extremities-warm, well-perfused, no edema/clubbing/cyanosis Labs and images reviewed 33-year-old female presenting with 13 days of diarrhea. Concern for infectious etiology. Patient also weakly fecal occult positive -Check C. difficile, stool culture, fecal leukocytes -Monitor CBC -Remainder of plan as above PG Care Time/CCT Total # of Minutes Spent Total Time Spent with Patient: Total time spent is greater than 50% in coordination of care (as documented) at patient's floor/unit and/or counseling patient: Resident Activity Tracking Resident Involvement: Resident Care Provided Care Provided: Adult Hospital Medicine (1) GI bleed GI bleed type/associated pathology: unspecified gastrointestinal hemorrhage type Qualified Code(s): K92.2 - Gastrointestinal hemorrhage, unspecified (2) HTN (hypertension) Hypertension type: essential hypertension Qualified Code(s): I10 - Essential (primary) hypertension
[2019-02-08] MEDS ORDERED: ACETAMINOPHEN 325 MG TAB PO PRN (01:09)
[2019-02-08] MEDS ORDERED: POTASSIUM CHLORIDE 20 MEQ TABCR PO ONE (01:30)
[2019-02-08] MEDS: PANTOprazole 40 MG TAB PO SCH ×3 (01:57→19:42)
[2019-02-08] MEDS: LACTATED RINGER'S 1,000 ML IV SCH ×3 (01:59→19:41)
[2019-02-08] MEDS ORDERED: GLUCOSE 10 TABS/TUBE PO PRN (02:00)
[2019-02-08] MEDS ORDERED: CARBOHYDRATES FOR HYPOGLYCEMIA PO PRN (02:00)
[2019-02-08] MEDS ORDERED: GLUCOSE 40% GEL 15 GM TUBE PO PRN (02:00)
[2019-02-08] MEDS ORDERED: DEXTROSE 50% 50 ML SYRINGE IV PRN (02:00)
[2019-02-08] MEDS ORDERED: GLUCAGON FOR INJ 1 MG VIAL IM PRN (02:00)
[2019-02-08] MEDS: HYDROCODONE/ACETAMOPHEN 5/325MG TAB PO PRN (02:14)
[2019-02-08] MEDS: INSULIN ASPART 100 UNITS/ML 3 ML PEN SC SCH ×5 (02:20→23:55)
[2019-02-08] MEDS: MoRPHine SULFATE 2 MG/ML CARP IV PRN ×5 (03:42→19:45)
[2019-02-08] MEDS: ONDANSETRON INJ 2 MG/ML 2 ML VIAL IV PRN ×3 (03:46→19:42)
[2019-02-08 07:59] LABS: Basophils # (auto) 0.02 K/uL (0-0.2); Basophils % (auto) 0.2 %; Eosinophils # (auto) 0.15 K/uL (0-0.5); Eosinophils % (auto) 1.8 %; Hematocrit (blood only) 32.3 % (37-47); Hemoglobin 10.1 g/dL (12.0-16.0); Immature Granulocytes # (auto) 0.02 K/uL (0.00-0.02); Immature Granulocytes % (auto) 0.2 %; Lymphocytes # (auto) 3.39 K/uL (1.2-3.4); Lymphocytes % (auto) 41.4 %; Mean Corpuscular Hgb Conc 31.3 g/dL (32-36); Mean Corpuscular Volume 92.8 fL (80-100); Mean Platelet Volume 9.3 fL (7.4-10.4); Monocytes # (auto) 0.44 K/uL (0.11-0.59); Monocytes % (auto) 5.4 %; Neutrophils # (auto) 4.16 K/uL (1.4-6.5); Platelet Count 338 K/uL (130-400); Red Blood Count 3.48 M/uL (4.2-5.4); White Blood Count 8.18 K/uL (4.8-10.8)
[2019-02-08] MEDS ORDERED: METFORMIN HCL 500 MG TAB PO SCH (08:00)
[2019-02-08 08:50] LABS: BUN Creatinine Ratio 11.7 (10-20); Calcium 8.2 mg/dl (8.5-10.1); Creatinine Clr Calc Pharmacy 116.6 ml/min; Est GFR (African American) 113.1; Est GFR (Non-African American) 97.6
[2019-02-08] MEDS: FLUOXETINE HCL 20 MG CAP PO SCH (08:56)
[2019-02-08] MEDS: SUCRALFATE 1 GM/10 ML UDC PO SCH ×4 (08:57→19:41)
[2019-02-08] MEDS: DOXEPIN HCL 25 MG CAPSULE PO SCH ×2 (08:57→13:27)
[2019-02-08] MEDS ORDERED: DICYCLOMINE HCL 20 MG TAB PO SCH (09:00)
[2019-02-08] MEDS ORDERED: LISINOPRIL 5 MG TAB PO SCH (09:00)
--- NOTE | 2019-02-08 10:50 | Family Medicine Progress Note ---
Date of Service February 08, 2019 Assessment & Plan (1) GI bleed: Ms. Kapadia is a 33 year old female with a past medical hx of GERD, DM2, HTN, HLD, depression, anxiety, bipolar, degenerative disc disease, and scoliosis who presented to [facility] due to abdominal pain, nausea, and black diarrhea x 13 days. Stool guaiac positive in ED. Abdominal pain, dark diarrhea: Concern for GI bleed - Afebrile, no WBC elevation - no evidence of surgical abdomen on exam, but patient appears bloated and is diffusely tender - CT abdomen: no acute findings, 3cm R ovarian cyst - Hgb dropped to 10.1 (down from 13.7 in October/November 2018). however remains hemodynamically stable - monitor CBC q12h - no episodes of diarrhea since admission - Stool Guaiac positive in ED - Stool Cx and studies ordered including h.pylori, giardia, calprotectin - C. diff ordered, however no risk factors for c.diff - suspect upper GI bleed given patient reports taking 1,200mg of ibuprofen several times a day consistently over the past 3 weeks for headaches - pt unsure of family hx of IBD/colon cancer as she is not in touch with them - pt has not seen a GI doctor before, no prior scopes - started on carafate QID and protonix BID - GI consulted, appreciate assistance with this case - tylenol and morphine 2mg q3h prn ordered for pain - pt NPO for potential scope, w/maintenance LR at 125 mls/hr Hypokalemia - resolved - K 3.8 after repletion, suspect secondary to losses in diarrhea and poor PO intake Clear vaginal discharge with odor - UA negative - Vaginal Cx collected in the ED and pending - Trichomonas prep negative in ED - N. Gonorrhea RNA pending - pt reports being monogamous with , no prior hx of STIs Dyspareunia - pt reports a longstanding history of painful intercourse, not any worse than usual - already has outpatient gynecology referral in place HTN -hold home lisinopril in setting of GI bleed DM2 -Hold home metformin -BSG per unit protocol, SSI Depression/anxiety/Bipolar -Continue home doxepin, and fluoxetine -significant life stressors - pt was incarcerated last year, and is currently attempting to get her son back from [facility] -states she feels safe at home Chronic back pain/degenerative disc disease/scoliosis -Continue home norco prn FEN/GI: NPO Code: Full DVT prophylaxis: SCDs only, low risk, chemical contraindicated Disposition: remains on med/surg pending GI evaluation (2) HTN (hypertension): (3) T2DM (type 2 diabetes mellitus): (4) Major depression: (5) Anxiety: (6) Scoliosis: (7) Acid reflux: (8) Abdominal pain: (9) Diarrhea: Supervising Physician Co-Signing Physician Notes Resident Physician Supervision Note: I independently interviewed and examined the patient and verified the herrera history and physical, reviewed labs and image studies, discussed the case with the resident Dr. Frank and agree with the findings and care plan. Subjective See Dr. Fong's H&P for details on history and physical. Results & Data Vital Signs (Past 12 Hours) Vital Signs Temp Pulse Pulse Resp BP BP Pulse Ox 02/08/19 08:58 115/84 02/08/19 07:29 36.7 C 88 18 127/84 96 02/08/19 02:19 132/91 02/08/19 01:15 36.6 C 88 18 139/104 H 95 02/08/19 01:00 36.6 C 91 H 20 139/104 H 100 02/07/19 23:50 99 H 18 135/98 97 PG Care Time/CCT Total # of Minutes Spent Total Time Spent with Patient: Total time spent is greater than 50% in coordination of care (as documented) at patient's floor/unit and/or counseling patient: Resident Activity Tracking Resident Involvement: Resident Care Provided Care Provided: Adult Hospital Medicine (1) GI bleed GI bleed type/associated pathology: unspecified gastrointestinal hemorrhage type Qualified Code(s): K92.2 - Gastrointestinal hemorrhage, unspecified (2) HTN (hypertension) Hypertension type: essential hypertension Qualified Code(s): I10 - Essential (primary) hypertension
[2019-02-08 13:45] LABS: Basophils # (auto) 0.03 K/uL (0-0.2); Basophils % (auto) 0.4 %; Eosinophils # (auto) 0.15 K/uL (0-0.5); Hematocrit (blood only) 32.3 % (37-47); Hemoglobin 10.1 g/dL (12.0-16.0); Immature Granulocytes # (auto) 0.01 K/uL (0.00-0.02); Immature Granulocytes % (auto) 0.1 %; Lymphocytes # (auto) 2.98 K/uL (1.2-3.4); Lymphocytes % (auto) 38.8 %; Mean Corpuscular Hgb Conc 31.3 g/dL (32-36); Mean Corpuscular Volume 92.8 fL (80-100); Mean Platelet Volume 9.2 fL (7.4-10.4); Monocytes # (auto) 0.39 K/uL (0.11-0.59); Monocytes % (auto) 5.1 %; Neutrophils # (auto) 4.12 K/uL (1.4-6.5); Neutrophils % (auto) 53.6 %; Platelet Count 320 K/uL (130-400); RDW Coefficient of Variation 15.9 % (11.5-14.5); RDW Standard Deviation 53.5 fL (36.4-46.3); Red Blood Count 3.48 M/uL (4.2-5.4); White Blood Count 7.68 K/uL (4.8-10.8)
--- NOTE | 2019-02-08 18:05 | Consultation Report ---
DATE OF CONSULTATION: 02/08/2019 REASON FOR EVALUATION: Diarrhea and melena. HISTORY OF PRESENT ILLNESS: The patient is a 33-year-old with a 2-week history of loose and watery diarrhea 4-5 times a day. The patient has noted recently some dark stools and presented to the hospital where she was noted to have heme positive stool and anemia with hemoglobin 11.2. CT of the abdomen was negative except for a 3 cm right ovarian cyst. Stool studies were ordered, but she has not had a bowel movement since being hospitalized earlier today. PAST MEDICAL HISTORY: Remarkable for diabetes, hypertension, depression, anxiety, scoliosis, acid reflux. PAST SURGICAL HISTORY: She has had 3 C-sections, appendectomy, cholecystectomy, breast reduction surgery, tubal ligation. MEDICATIONS: Omeprazole, lisinopril, metformin, doxepin, Prozac, hydrocodone and acetaminophen. ALLERGIES: PENICILLIN. FAMILY HISTORY: Grandmother had diabetes and breast cancer. Brother had diabetes. Father and mother both have hypertension. SOCIAL HISTORY: The patient is . She lives with her . She smokes, but does not drink any alcohol. REVIEW OF SYSTEMS: Positive for abdominal pain. Remainder is negative. PHYSICAL EXAMINATION: GENERAL: The patient is overweight, in no acute distress. VITAL SIGNS: Blood pressure is 135/98, pulse 99. She is afebrile. HEENT: Shows a piercing of her tongue. ABDOMEN: Shows a low transverse scar and laparoscopic scars from appendectomy and cholecystectomy. Bowel sounds are normal. There is mild tenderness throughout the abdomen. No discrete masses or hepatosplenomegaly. NEUROLOGIC: Nonfocal. IMPRESSION AND PLAN: The patient has had diarrhea with some melena and anemia, heme positive stools. The patient is trying to produce a stool for culture and stool studies. Plan on scheduling her for an EGD tomorrow to check for an upper GI potential source for blood loss. In the meantime, she will continue current measures. The patient will be n.p.o. after midnight.
[2019-02-08] MEDS ORDERED: DOXEPIN HCL 50 MG CAPSULE PO SCH (21:00)
[2019-02-09] MEDS: LACTATED RINGER'S 1,000 ML IV SCH ×2 (03:22→13:57)
[2019-02-09] MEDS: INSULIN ASPART 100 UNITS/ML 3 ML PEN SC SCH (05:36)
[2019-02-09] MEDS: ONDANSETRON INJ 2 MG/ML 2 ML VIAL IV PRN (07:34)
[2019-02-09] MEDS: MoRPHine SULFATE 2 MG/ML CARP IV PRN (07:36)
--- NOTE | 2019-02-09 08:08 | Anesthesiology Consultation ---
Date of Service February 09, 2019 Assessment & Plan (1) Encounter for pre-operative examination: Chart Review Chart Review: Acceptable Risk for Surgery and Patient NOT seen in Pre Admission Testing Consults Requested none History Surgery Operation Date: 02/09/19 08:00 Proposed Procedures p Esophagogastroduodenoscopy Dr Suzie Larsen Height/Weight Height: 5 ft 5 in Weight: 97.4 kg Allergies Allergy/AdvReac Type Severity Reaction Status Date / Time Penicillins Allergy Unknown rash Verified 02/07/19 15:58 Medications Home Medications Medication Instructions Recorded Confirmed Last Taken omeprazole 20 mg PO QAM 11/09/18 02/07/19 11/21/18 08:00 lisinopril 5 mg tablet 5 mg PO DAILY #30 tab 01/30/19 02/07/19 Unknown metformin 500 mg tablet 500 mg PO BID #60 tab 01/30/19 02/07/19 Unknown doxepin 200 mg PO HS 02/07/19 02/07/19 Unknown doxepin 25 mg capsule 25 mg PO BID #180 cap 02/07/19 02/07/19 Unknown fluoxetine [Prozac] 80 mg PO DAILY 02/07/19 02/07/19 Unknown hydrocodone-acetaminophen 1 tab PO DAILY PRN 02/07/19 02/07/19 Unknown Active Medications Generic Name Dose Route Start Last Admin Trade Name Russellq PRN Reason Stop Dose Admin Hydrocodone Bitart/Acetaminophen 1 tab 02/08/19 01:09 02/08/19 02:14 [place] 5/325 PO 02/22/19 01:08 1 tab DAILY PRN Administration Pain Doxepin HCl 25 mg 02/08/19 09:00 02/08/19 13:27 Sinequan PO 03/10/19 08:59 25 mg BID@0900,1400 LAXMI Administration Doxepin HCl 200 mg 02/08/19 21:00 02/08/19 19:42 Sinequan PO 03/10/19 20:59 200 mg HS LAXMI Administration Fluoxetine HCl 80 mg 02/08/19 09:00 02/08/19 08:56 Prozac PO 03/10/19 08:59 80 mg DAILY LAXMI Administration Lactated Ringer's 1,000 mls @ 125 mls/hr 02/08/19 01:09 02/09/19 03:22 Lr IV 03/10/19 01:08 125 mls/hr .Q8H LAXMI Administration Insulin Aspart 0 units 02/08/19 02:00 02/09/19 05:36 Novolog Flexpen SC 03/10/19 01:59 Not Given Q6 LAXMI Lisinopril 5 mg 02/08/19 09:00 02/08/19 08:59 Zestril PO 03/10/19 08:59 5 mg DAILY LAXMI Administration Morphine Sulfate 2 mg 02/08/19 01:09 02/09/19 07:36 Morphine Sulfate IV 02/22/19 01:08 2 mg Q3H PRN Administration Pain Ondansetron HCl 4 mg 02/08/19 01:09 02/09/19 07:34 Zofran IV 03/10/19 01:08 4 mg Q6H PRN Administration Nausea Pantoprazole Sodium 40 mg 02/08/19 01:09 02/08/19 19:42 Protonix PO 03/10/19 01:08 40 mg BID LAXMI Administration Sucralfate 1 gm 02/08/19 09:00 02/08/19 19:41 Carafate PO 03/10/19 08:59 1 gm QID LAXMI Administration NPO Date Last Intake of Fluids: 02/09/19 Time Last Intake of Fluids: 00:00 Date Last Intake of Solids: 02/09/19 Time Last Intake of Solids: 00:00 Past Medical History Medical History Degenerative disc disease HTN (hypertension) T2DM (type 2 diabetes mellitus) Sciatica Bipolar disorder Major depression Anxiety Scoliosis Acid reflux CONTROLLED Obesity Breast hypertrophy Macromastia Bronchitis (Resolved) wound infection (Resolved) Complete (Resolved 03/03/13) Pneumonia (Resolved) Sinusitis (Resolved) uterine contractions, antepartum (08/13/13) Past Family History Family History Grandmother Family history of breast cancer Diabetes Brother Diabetes Father Hypertension Mother Hypertension Past Surgical History Surgical History History of 3 sections History of appendectomy Lap appe: 01/22/16: Grade I view, Gonzáles #2, ETT 7 at [facility] History of cholecystectomy History of open reduction and internal fixation (ORIF) procedure LEFT ANKLE History of tooth extraction S/P tonsillectomy S/P tubal ligation Social History Smoking Status: Current every day smoker tobacco type: cigarettes Smoking cigarettes per day: 1 or 2 cigarettes per day per patient Do You Dip or Chew Tobacco: No Hx Alcohol Use: No Hx Substance Use: No substance use type: does not use Physical Exam Vital Signs Last Vital Signs Temp 36.7 C 02/09/19 07:15 Pulse 92 H 02/09/19 07:15 Resp 18 02/09/19 07:15 BP 124/87 02/09/19 07:15 Pulse Ox 95 02/09/19 07:15 Testing Laboratory Results 02/08/19 13:32 02/08/19 09:40 Urine Color Yellow 02/07/19 19:54 Urine Appearance Clear (Clear) 02/07/19 19:54 Urine pH 6.5 (4.5-7.5) 02/07/19 19:54 Ur Specific [place] 1.011 (1.000-1.030) 02/07/19 19:54 Urine Protein Negative (Negative) 02/07/19 19:54 Urine Glucose (UA) Negative (Negative) 02/07/19 19:54 Urine Ketones Negative (Negative) 02/07/19 19:54 Urine Nitrite Negative (Negative) 02/07/19 19:54 Ur Leukocyte Esterase Negative (Negative) 02/07/19 19:54 02/08/19 18:30 WBC Smear - Final Stool 02/07/19 22:26 Gram Stain - Final Vaginal Genital Culture - Preliminary Pin-point growth present, reincubating. 02/07/19 22:26 Trichomonas Preparation - Final Cervix 02/09/19 02/08/19 02/08/19 05:28 23:42 20:45 POC Glucose 106 H 107 H 107 H 02/07/19 19:54 POC Ur Test NEG
--- NOTE | 2019-02-09 08:35 | History & Physical Report ---
Date of Service February 09, 2019 History of Present Illness Chief Complaint: Melena Primary Care Provider: Claudia Villalobos DO For EGD Allergies Allergy/AdvReac Type Severity Reaction Status Date / Time Penicillins Allergy Unknown rash Verified 02/07/19 15:58 Home Medications Home Medications Medication Instructions Recorded Confirmed Type omeprazole 20 mg PO QAM 11/09/18 02/07/19 History lisinopril 5 mg tablet 5 mg PO DAILY #30 tab 01/30/19 02/07/19 Rx metformin 500 mg tablet 500 mg PO BID #60 tab 01/30/19 02/07/19 Rx doxepin 200 mg PO HS 02/07/19 02/07/19 History doxepin 25 mg capsule 25 mg PO BID #180 cap 02/07/19 02/07/19 Rx fluoxetine [Prozac] 80 mg PO DAILY 02/07/19 02/07/19 History hydrocodone-acetaminophen 1 tab PO DAILY PRN 02/07/19 02/07/19 History Past Med/Surg History Medical History Degenerative disc disease HTN (hypertension) T2DM (type 2 diabetes mellitus) Sciatica Bipolar disorder Major depression Anxiety Scoliosis Acid reflux CONTROLLED Obesity Breast hypertrophy Macromastia Bronchitis (Resolved) wound infection (Resolved) Complete (Resolved 03/03/13) Pneumonia (Resolved) Sinusitis (Resolved) uterine contractions, antepartum (08/13/13) Surgical History History of 3 sections History of appendectomy Lap appe: 01/22/16: Grade I view, Gonzáles #2, ETT 7 at [facility] History of cholecystectomy History of open reduction and internal fixation (ORIF) procedure LEFT ANKLE History of tooth extraction S/P tonsillectomy S/P tubal ligation Family History Grandmother Family history of breast cancer Diabetes Brother Diabetes Father Hypertension Mother Hypertension Social History Preferred Language: Slovak Communication Ability: Effective Mapping Pilot Required: No Beliefs That Will Affect Care: None Current Living Situation: Spouse Other Information That Helps Us Care for You: No Feels Safe at Home: Yes Safety Concerns: Feels Safe At This Time Smoking Status: Current every day smoker Tobacco Type: cigarettes ; Cigarettes Per Day: 1 or 2 cigarettes per day per patient ; Do You Dip or Chew Tobacco: No ; Second Hand Exposure: No ; Tobacco Cessation Education Requested by Patient: No Hx Alcohol Use: No Hx Substance Use: No Physical Exam Constitutional: + obese ENMT: Mouth: + dentition abnormality Respiratory: normal respiratory effort Cardiovascular: Rate/Rhythm: regular rate and regular rhythm Gastrointestinal (Abdomen): Percussion/Palpation: abdomen soft Results & Data Vital Signs (Past 12 Hours) Vital Signs Temp Pulse Resp BP Pulse Ox 02/09/19 07:15 36.7 C 92 H 18 124/87 95 02/08/19 23:39 36.8 C 89 18 127/85 97 Code Status & VTE Plan VTE Prophylaxis Plan VTE Prophylaxis will be ordered: Yes
[2019-02-09] MEDS ORDERED: PROPOFOL IV EMULSION 10 MG/ML 20 ML VIAL IV ONE (08:37)
[2019-02-09] MEDS ORDERED: LIDOCAINE HCL 2% 2 ML VIAL/AMP(20MG/ML) INFIL ONE (08:37)
[2019-02-09] MEDS ORDERED: ATROPINE SULFATE 0.1 MG/ML 10ML SYR IV PRN (08:43)
[2019-02-09] MEDS ORDERED: SODIUM CHLORIDE 0.9% 1000ML 1,000 ML IV SCH (08:45)
--- NOTE | 2019-02-09 08:59 | GI REPORT ---
Patient Name: Adali Kapadia Procedure Date: 02/09/2019 8:32 AM Date of : 1985 Admit Type: Inpatient Age: 33 Gender: Female Attending MD: Dave Larsen MD Procedure: Upper GI endoscopy Providers: Dave Larsen MD Referring MD: Alva Denny Indications: Melena Medicines: Propofol total dose 150 mg IV, Lidocaine 80 mg IV Complications: No immediate complications. Estimated Blood Loss: Estimated blood loss: none. Procedure: Pre-Anesthesia Assessment: - Prior to the procedure, a History and Physical was performed, and patient medications, allergies and sensitivities were reviewed. The patient's tolerance of previous anesthesia was reviewed. - The risks and benefits of the procedure and the sedation options and risks were discussed with the patient. All questions were answered and informed consent was obtained. After obtaining informed consent, the endoscope was passed under direct vision. Throughout the procedure, the patient's blood pressure, pulse, and oxygen saturations were monitored continuously. The Endoscope was introduced through the mouth, and advanced to the second part of duodenum. The upper GI endoscopy was accomplished without difficulty. The patient tolerated the procedure well. Findings: The Z-line was regular and was found 41 cm from the incisors. The examined esophagus was normal. The entire examined stomach was normal. The examined duodenum was normal. Impression: - Z-line regular, 41 cm from the incisors. - Normal esophagus. - Normal stomach. - Normal examined duodenum. - No specimens collected. Recommendation: - Return patient to [facility] for ongoing care. Dave Larsen M.D. Dave Larsen MD 02/09/2019 8:58:47 AM This report has been signed electronically. Note Initiated On: 02/09/2019 8:32 AM Number of Addenda: 0 I attest to the content of the Intraoperative Record and orders documented therein, exceptions below {[id number]}
--- NOTE | 2019-02-09 09:04 | Anesthesiology Progress Note ---
Date of Service February 09, 2019 Anesthesia Post Procedure Vital Signs Vital Signs: Temp Pulse Pulse Resp BP BP Pulse Ox 02/09/19 08:29 36.6 C 97 H 97 H 20 141/84 H 96 02/09/19 07:15 36.7 C 92 H 18 124/87 95 02/08/19 23:39 36.8 C 89 18 127/85 97 02/08/19 15:34 36.6 C 81 16 130/89 98 Pain Intensity Left Lower Abdomen: Pain Intensity: 8 Transfer of Care Handoff Completed per policy Notes Mental Status: alert / awake / arousable Patient Amnestic to Procedure: Yes Nausea / Vomiting: adequately controlled Pain: adequately controlled Airway Patency, RR, SpO2: stable & adequate BP & HR: stable & adequate Hydration State: stable & adequate Anesthetic Complications: no major complications apparent and Pt Satisfied with anesthetic care
--- NOTE | 2019-02-09 09:45 | Progress Note ---
DATE: 02/09/2019 SUBJECTIVE: The patient submitted a stool specimen, which was negative for C. diff and fecal leukocytes. Stool culture and stool for H. pylori are pending as well as stool for calprotectin. Two different fecal samples were negative for blood, however. Vital signs are normal. She is afebrile. EGD was performed today which was completely normal. There was no inflammation, ulcerations or sight of any source of blood loss. There was no blood in the stomach. IMPRESSION AND PLAN: The patient is anemic with dark stools. It does not appear that there was blood in the stool on Hemoccult testing, so it is not clear where the dark stools are coming from. It could have been something that she ate. There are some stool studies pending. I would recommend that the patient undergo a colonoscopy as an outpatient, which we can arrange on discharge.
--- NOTE | 2019-02-09 09:46 | Family Medicine Progress Note ---
Date of Service February 09, 2019 Results & Data Vital Signs (Past 12 Hours) Vital Signs Temp Pulse Pulse Resp BP BP Pulse Ox 02/09/19 09:28 87 18 132/93 97 02/09/19 09:13 90 18 136/97 96 02/09/19 08:57 87 18 129/95 100 02/09/19 08:29 36.6 C 97 H 97 H 20 141/84 H 96 02/09/19 07:15 36.7 C 92 H 18 124/87 95 02/08/19 23:39 36.8 C 89 18 127/85 97 PG Care Time/CCT Total # of Minutes Spent Total Time Spent with Patient: Total time spent is greater than 50% in coordination of care (as documented) at patient's floor/unit and/or counseling patient:
[2019-02-09] MEDS: DOXEPIN HCL 25 MG CAPSULE PO SCH ×2 (09:57→13:57)
[2019-02-09] MEDS: PANTOprazole 40 MG TAB PO SCH (09:57)
[2019-02-09] MEDS: SUCRALFATE 1 GM/10 ML UDC PO SCH ×2 (09:57→12:07)
[2019-02-09] MEDS: FLUOXETINE HCL 20 MG CAP PO SCH (09:58)
[2019-02-09] MEDS: HYDROCODONE/ACETAMOPHEN 5/325MG TAB PO PRN (10:07)
[2019-02-09 10:13] LABS: Basophils # (auto) 0.03 K/uL (0-0.2); Basophils % (auto) 0.4 %; Eosinophils # (auto) 0.14 K/uL (0-0.5); Eosinophils % (auto) 1.7 %; Hematocrit (blood only) 33.2 % (37-47); Hemoglobin 10.5 g/dL (12.0-16.0); Immature Granulocytes # (auto) 0.01 K/uL (0.00-0.02); Immature Granulocytes % (auto) 0.1 %; Lymphocytes # (auto) 2.39 K/uL (1.2-3.4); Lymphocytes % (auto) 29.4 %; Mean Corpuscular Hemoglobin 29.1 pg (25-34); Mean Corpuscular Hgb Conc 31.6 g/dL (32-36); Mean Platelet Volume 9.4 fL (7.4-10.4); Monocytes # (auto) 0.29 K/uL (0.11-0.59); Monocytes % (auto) 3.6 %; Neutrophils # (auto) 5.27 K/uL (1.4-6.5); Neutrophils % (auto) 64.8 %; Platelet Count 359 K/uL (130-400); RDW Coefficient of Variation 15.9 % (11.5-14.5); RDW Standard Deviation 53.3 fL (36.4-46.3); Red Blood Count 3.61 M/uL (4.2-5.4); White Blood Count 8.13 K/uL (4.8-10.8)
[2019-02-09 10:40] LABS: BUN Creatinine Ratio 9.1 (10-20); Calcium 8.2 mg/dl (8.5-10.1); Creatinine Clr Calc Pharmacy 116.6 ml/min; Est GFR (African American) 113.1; Est GFR (Non-African American) 97.6; Potassium 4.1 mmol/L (3.5-5.1)
[2019-02-09] MEDS ORDERED: Nursing to Pharmacy Communication ONE (10:45)
[2019-02-09] MEDS ORDERED: INSULIN ASPART 100 UNITS/ML 3 ML PEN SC SCH (11:30)
--- NOTE | 2019-02-09 13:12 | Discharge Summary ---
Date of Service February 09, 2019 Admission HPI Per Admitting Provider 33yoF with Hx of GERD, DM2, HTN, HLD, depression, anxiety, bipolar, degenerative disc disease, scoliosis presents with abdominal pain and diarrhea x 13 days. Reports started having diffuse abdominal pain, n/v, and dark diarrhea and went to [facility] where she stayed in the ED for several hours as her potassium was really low. Since then she continues to have intermittent abdominal pain more so over LLQ and lower abdomen described as sharp/shooting and 8/10. Associated with nausea, black non-bloody diarrhea (4-5 episodes per day), bowel incontinence noted today, and decreased appetite. Denies any fever, chills, hematuria, cp, sob, WHITLEY, dizziness. Also reports occasional dysuria, clear vaginal discharge with odor and discomfort with sexual intercourse. Denies hx of previous vaginal infections including yeast infections, no vaginal bleeding. Hx of chronic back pain. Surgical Hx: appendectomy, cholecystectomy, tubal ligation, T&A, L ankle surgery, Social Hx: smokes cigarettes for 20 years 1/2 ppd recently decreased to 1-2 cig/day, denies alcohol or recreational drug use Admission Exam Per Admitting Provider General: In NAD HEENT: dry mucous membranes Neuro: A&O x 4 Pulm: CTAB, equal breath sounds bilaterally CV: RRR, no m/r/g Abdomen:+BS hyperactive, mild TTP in all quadrants, obese LE: no LE edema, no calf TTP Principal Diagnosis Diarrhea, Abdominal Pain Discharge Exam Constitutional WD/WN, vitals as above Respiratory normal respiratory effort, lungs clear to auscultation Cardiovascular RRR, no murmur, no edema Gastrointestinal (Abdomen) Inspection/Auscultation: abdomen normal to inspection and normal bowel sounds Percussion/Palpation: + abdomen tender (mild diffuse tenderness to palpation) and abdomen soft Skin no rashes, warm and dry Psychiatric A+Ox3, euthymic affect Discharge Data Allergies Allergy/AdvReac Type Severity Reaction Status Date / Time Penicillins Allergy Unknown rash Verified 02/07/19 15:58 Consultations 02/08/19 00:27 ED Decision to Admit Stat 02/08/19 01:09 Consult Gastroenterology Routine Procedures Performed Operation Date: 02/09/19 08:00 Actual Procedures p Esophagogastroduodenoscopy - Dave Larsen Ordered Studies 02/07/19 20:07 CT abd pelvis wo con Stat Hospital Course (1) GI bleed: Ms. Kapadia is a 33 year old female with a past medical hx of GERD, DM2, HTN, HLD, depression, anxiety, bipolar, DDD, and scoliosis who presented to [facility] due to abdominal pain, nausea, and dark diarrhea for two weeks. Found not to have UGI bleed and with improvement of symptoms was discharged to home. Abdominal pain, dark diarrhea: Concern for GI bleed - Stool guaiac positive in ED however repeat stool guiac was negative. Stool cultures ordered which are pending but stool smear negative, C. diff negative. - Initially suspected upper GI bleed due to ibuprofen the pt was taking however EGD showed no bleed. - Pt's Hgb remained stable at 10.5, pt's abdominal symptoms continued to improve on their own. - Was discharged home, for follow up with PCP on 02/15/19 and to follow up with GI for outpatient colonoscopy. Hypokalemia - resolved - K 4.1 today, suspect initial hypokalemia due to secondary to losses in diarrhea and poor PO intake Clear vaginal discharge with odor - UA negative, Trichomonas prep negative, N. Gonorrhea RNA pending - For follow up with PCP Dyspareunia - pt reports a longstanding history of painful intercourse, not any worse than usual - already has outpatient gynecology referral in place HTN - BP normotensive during admission - pt to resume home lisinopril DM2 - sugars well controlled in hospital - pt to resume home metformin Depression/anxiety/Bipolar - Continue home doxepin and fluoxetine Chronic back pain/degenerative disc disease/scoliosis -Continue home [place] PRN (2) HTN (hypertension): (3) T2DM (type 2 diabetes mellitus): (4) Major depression: (5) Anxiety: (6) Scoliosis: (7) Acid reflux: (8) Abdominal pain: (9) Diarrhea: Total Time Total Time Spent Total Time Spent (In Minutes): 30 minutes Discharge Plan Discharge Items Patient Disposition: Home - Self-Care Reason For Visit: GI BLEED Discharge Diagnosis: Diarrhea, Abdominal Pain Discharge Goals: Decrease discomfort Activity: Resume your previous activity Non-emergency contact: Primary Care Provider Call non-emergency contact if: you have any medication questions Follow-up/Referrals: Ricotta,Claudia M., DO [Primary Care Provider] - 02/15/19 9:10 am (Please, follow up at Dr. Villalobos's office on February 15 at 9:10 am. *The office is located in [place], next to [address]. If you need to change this appointment, call the office at [phone].) Diet: Regular Addtl Provider Instructions: Ms. Kapadia, you were admitted to [facility] due to abdominal pain and diarrhea, lasting for 2 weeks. It was also noticed that your blood count was a bit lower than your baseline. We checked a CT scan of your abdomen, which did not show anything concerning. You were treated with medications to help decrease the amount of acid in your stomach. You were seen by our gastroenterology team and had a scope done which showed no abnormalities in your stomach. While you were here your belly pain started to improve and your blood counts remained stable, and we and the GI team felt comfortable sending you home. You are scheduled for a hospital follow up with Claudia Villalobos on 02/15/19 at 9:10 AM. Please contact [facility] regarding setting up your colonoscopy. If you start to develop fevers or chills, chest pain, trouble breathing, or note blood in your stools please call your primary care doctor. Prescriptions: Continued metformin 500 mg tablet 500 mg PO BID Qty: 60 RF: 2 lisinopril 5 mg tablet 5 mg PO DAILY Qty: 30 RF: 2 doxepin 25 mg capsule 25 mg PO BID Qty: 180 RF: 1 fluoxetine [Prozac] 40 mg Capsule 80 mg PO DAILY RF: 0 doxepin 100 mg capsule 200 mg PO HS RF: 0 hydrocodone-acetaminophen 5-325 mg Tablet 1 tab PO DAILY PRN (Reason: Pain) RF: 0 omeprazole 20 mg Capsule,Delayed Release(Dr/Ec) 20 mg PO QAM RF: 0 Stand-Alone Forms: Call Back Authorization, [facility] Discharge Orders: Discharge Order (Routine); Ordered 02/09/19 Ordered By: Yaneth Washburn Admission Data Admit Date/Time: 02/08/19 00:19 Attending Provider: Alva Denny Admit Provider: Pati Solis Primary Care Provider: Claudia Villalobos. Other Providers: WillPati Joel B Service: Surgical Services Other Interventions: Discharge Summary Assessment (RN) Last Done: 02/09/19 13:35 DC Date/Time DO NOT enter until pt leaves facility: 02/09/19 15:19 Supervising Physician Co-Signing Physician Notes Resident Physician Supervision Note: I independently interviewed and examined the patient and verified the herrera history and physical, reviewed labs and image studies, discussed the case with the resident Dr. Washburn and agree with the findings and care plan. Time spent in discharge 35 min Resident Activity Tracking Resident Involvement: Resident Care Provided Care Provided: Adult Hospital Medicine
[2019-02-15 02:18] LABS: Calprotectin, Stool 176.2 mcg/g
== END 2019-02-09 15:19 | disposition home or self-care (01) ==
LOC: ED 19:41 → 3N 19:41 → SUATTDRO 02-08 00:19 → 3N 02-08 00:49